=== PATIENT | male | born 1960 | race Hispanic/Latino ===

== ENCOUNTER 2019-02-02 15:08 | Emergency (ER) | payer OTHER, SELFPAY ==
[2019-02-02 15:19] VITALS: BP 162/86; PULSE 88; RESP 13; TEMP 37.1; O2SAT 99
--- NOTE | 2019-02-02 15:28 | ED_ITS ---
HPI - Extremity Injury (Lower) <Radha Espitia PA-C - Last Filed: 02/02/19 18:00> General Chief Complaint: Extremity Injury, Lower Stated Complaint: states gout attack Time Seen by Provider: 02/02/19 15:14 Source: patient Mode of arrival: Wheelchair Limitations: no limitations History of Present Illness HPI Narrative: This 58-year-old male who has a long history of recurrent gout comes in today due to gout exacerbation. He states that he has been on preventative medication in the past but not recently, tends to work more with diet to help that. Late yesterday, he developed a red, swollen painful right great toe, which is the most common spot for his gout attacks. He states this feels like gout. He states that colchicine has not been effective for him in the past, and that indomethacin tends to work best for him. He states he has taken that periodically without problems, but unable to be seen at the [facility] [place] today so came here. He denies any new injury to the foot, cuts, fever, other new complaints on systems review. States recent renal function normal on lab work Related Data Home Medications Medication Instructions Recorded Confirmed lisinopril 20 mg PO QDAY #0 03/10/16 Previous Rx's Medication Instructions Recorded benzonatate [Tessalon Perles] 1 - 2 cap PO Q8HP PRN #15 cap 03/10/16 indomethacin 50 mg PO TID #14 cap 02/02/19 Allergies Allergy/AdvReac Type Severity Reaction Status Date / Time ASA (ASPIRIN) Allergy Intermediate HIVES ON Uncoded 06/18/17 12:28 FACE WITH HIGH DOSES anacin brand Review of Systems <Radha Espitia PA-C - Last Filed: 02/02/19 18:00> Review of Systems ROS Unobtainable: All systems reviewed & are unremarkable except as noted in HPI and below Patient History <Radha Espitia PA-C - Last Filed: 02/02/19 18:00> Medical History (Updated 02/02/19 @ 16:12 by Radha Espitia PA-C) Allergies (Chronic) CAD (coronary artery disease) (Chronic) Gout attack (Chronic) HTN (hypertension) (Chronic) Hyperlipidemia (Chronic) Surgical History (Updated 02/02/19 @ 15:44 by Radha Espitia PA-C) Status post aorto-coronary artery bypass graft (Resolved) Social History (Updated 02/02/19 @ 15:45 by Radha Espitia PA-C) Smoking Status: Never smoker substance use type: does not use Substance Use Type: does not use Exam <Radha Espitia PA-C - Last Filed: 02/02/19 18:00> Narrative Exam Narrative: GENERAL APPEARANCE: Patient sitting comfortably, in no distress. LUNGS: Clear to auscultation bilaterally. HEART: Rate and rhythm regular without murmur, normal S1 and S2, no S3 or S4. DERMATOLOGIC: Right great toe erythematous and warm at the MTP joint, no warmth or tenderness elsewhere on the right or left foot MUSCULOSKELETAL: Exquisitely tender right 1st MTP joint, no tenderness or effusion elsewhere EXTREMITIES: No cyanosis, no edema, no calf tenderness Initial Vital Signs Initial Vital Signs: Vital Signs Temperature 98.8 F 02/02/19 15:19 Pulse Rate 88 02/02/19 15:19 Respiratory Rate 13 02/02/19 15:19 Blood Pressure 162/86 H 02/02/19 15:19 Pulse Oximetry 99 02/02/19 15:19 <Silvia Castro DO - Last Filed: 02/03/19 07:46> Initial Vital Signs Initial Vital Signs: Vital Signs Temperature 98.8 F 02/02/19 15:19 Pulse Rate 88 02/02/19 15:19 Respiratory Rate 13 02/02/19 15:19 Blood Pressure 162/86 H 02/02/19 15:19 Pulse Oximetry 99 02/02/19 15:19 Course <Radha Espitia PA-C - Last Filed: 02/02/19 18:00> Orders Ordered: Discontinued Medications Indomethacin (Indocin) 50 mg PO NOW ONE Stop: 02/02/19 15:37 Last Admin: 02/02/19 15:51 Dose: 50 mg Documented by: BOO Vital Signs Vital signs: Vital Signs - 8 hr 02/02/19 15:19 Temperature 98.8 F Pulse Rate 88 Respiratory Rate 13 Blood Pressure 162/86 H Pulse Oximetry 99 <Silvia Castro DO - Last Filed: 02/03/19 07:46> Orders Ordered: Discontinued Medications Indomethacin (Indocin) 50 mg PO NOW ONE Stop: 02/02/19 15:37 Last Admin: 02/02/19 15:51 Dose: 50 mg Documented by: BOO Vital Signs Vital signs: Vital Signs - 8 hr 02/02/19 15:19 Temperature 98.8 F Pulse Rate 88 Respiratory Rate 13 Blood Pressure 162/86 H Pulse Oximetry 99 Discharge Plan Departure Patient Disposition: Home Clinical Impression: Gout attack Qualifiers: Gout site: toe Gout etiology: idiopathic Laterality: right Qualified Code(s): M10.071 - Idiopathic gout, right ankle and foot Discharge Date/Time: 02/02/19 16:32 Instructions: DI for Gout Activity Restrictions/Additional Instructions: We will plan to treat your gout with indomethacin as usual since that tends to work best for you (sent to [facility] in [place]). Please take another dose at bedtime, make sure you take with food or milk to protect your stomach. Do not take for more than 3-5 days. Please follow-up with your PCP for recheck and to determine whether you need to go back on any preventative treatment for your gout, or whether they want you to have a prescription on hand for flare-ups. Return as we talked about if you have any acute changes, such as new fever or spreading joint pain, prior to your follow-up. Prescriptions: New indomethacin 50 mg capsule 50 mg PO TID Qty: 14 RF: 0 No Action lisinopril 20 MG tablet 20 mg PO QDAY Qty: 0 RF: 0 benzonatate [Tessalon Perles] 100 MG capsule 1 - 2 cap PO Q8HP PRNQty: 15 RF: 0 Referrals: [facility], [place] [Other]
[2019-02-02] MEDS: INDOMETHACIN 25 MG CAPSULE 50 MG PO (15:51)
== END 2019-02-02 16:32 | disposition home or self-care (01) ==
PROVIDERS: Emergency Provider Internal Medicine
DX: M10.071 Idiopathic gout, right ankle and foot (principal); I10 Essential (primary) hypertension; E78.5 Hyperlipidemia, unspecified
CPT/HCPCS: 99282; 99283

== ENCOUNTER → 2022-08-06 09:39 | Outpatient (CLI) | payer OTHER, SELFPAY ==
--- NOTE | 2022-08-06 18:22 | DI.NM.S_ITS ---
DATE OF SERVICE: 08/06/2022 PROCEDURE: Exercise perfusion study. INDICATIONS: Known CAD status post bypass surgery, diabetes mellitus, hypertension, hyperlipidemia. Exercise perfusion study was done for CAD risk stratification. RADIOPHARMACEUTICAL: Radioisotope, 27 mCi technetium-99m IV was injected at stress and 12.7 mCi technetium-99m IV was injected at rest. CARDIAC STRESS: The patient underwent exercise perfusion study under the supervision of an attending staff. The patient walked on Terry protocol for 6 minutes and 7 seconds, had shortness of breath and leg pain. No anginal symptoms. Baseline blood pressure 188/104 and peak blood pressure was 250/140. Hence, test was discontinued. At 6 minutes 42 seconds in recovery, blood pressure decreased to 178/106 mmHg. Baseline rhythm was sinus. During stress, significant baseline artifact. However, in late recovery, around 2 minutes 39 seconds into the recovery, patient had about 1 to 1.[address] depression in inferior leads and leads V5 to V6. No significant arrhythmias. RAW DATA: Adequate myocardial uptake. GATED STUDY: Resting LV ejection fraction 71% and stress LV ejection fraction 74%. Resting end-diastolic volume 70 mL. TID ratio 1.14, which is within normal limits. Lung/heart ratio 0.33, which is within normal limits. MYOCARDIAL PERFUSION SCAN: Stress supine, resting supine and stress prone images were compared to each other. Stress supine and resting supine images revealed small size, mildly decreased perfusion of basal lateral wall which got resolved during stress prone images. Stress prone images revealed normal myocardial perfusion. No convincing ischemia infarction. CONCLUSION: I would call this study a normal myocardial perfusion study, as stress prone images revealed normal myocardial perfusion and some tissue attenuation artifact, which got resolved during stress prone images. Poor exercise tolerance. Significantly hypertensive blood pressure response. Baseline blood pressure 188/104 and peak blood pressure went up to 250/140. At 6 minutes 42 seconds in recovery, blood pressure decreased to 178/106 mmHg. EKG changes in late recovery, as stated above. However, no significant ischemia or infarction on perfusion scan. Preserved left ventricular function. JAYESH positive 22%. The patient achieved 7 METs of workload. Midlevel who supervised the stress test advised patient to resume his blood pressure medications. Will recommend patient to see PCP urgently for further evaluation and management of blood pressure. Jersey Jauregui - /heriberto/ doc#: [id number]/job#: [id number] dd: 08/06/2022 16:23:00 dt: 08/06/2022 17:46:00 DICTATING MD/COPIES TO: Krystian Mason MD; Sarah Mclean COPIES MNE: GEORGE; ; Sarah Mclean
--- NOTE | 2022-08-06 18:42 | DI.NM.S_ITS ---
DATE OF SERVICE: 08/06/2022 ADDENDUM Please make that addendum in my previous note that at 6 minutes 42 seconds in recovery, blood pressure decreased to 178/106 mmHg. Jersey Jauregui - JOAQUINA/heriberto/ doc#: [id number]/job#: [id number] dd: 08/06/2022 16:26:00 dt: 08/06/2022 18:26:00 DICTATING /COPIES TO: Krystian Mason MD COPIES MNE: GEORGE;
== END ==
PROVIDERS: PCP Counselor Addiction (Substance Use Disorder); Referring Provider Counselor Addiction (Substance Use Disorder); Visit Provider Counselor Addiction (Substance Use Disorder)
DX: I25.810 Atherosclerosis of coronary artery bypass graft(s) without angina pectoris (principal); I10 Essential (primary) hypertension
CPT/HCPCS: 78452; 93017; A9502

== ENCOUNTER 2022-08-26 13:46 | Emergency (ER) | payer OTHER, SELFPAY ==
[2022-08-26 13:48] VITALS: BP 155/106; PULSE 74; TEMP 36.9; O2SAT 99; BMI 29.8
--- NOTE | 2022-08-26 13:58 | DI.RAD.S_ITS ---
PROCEDURE: XR KNEE RT 3V INDICATIONS: Pain TECHNIQUE: 3 views of the knee were acquired. COMPARISON: None. FINDINGS: Bones: No fractures or dislocations. No suspicious bony lesions. Tricompartmental arthritic change. Soft tissues: Moderate joint effusion. No suspicious soft tissue calcifications. IMPRESSION: No visualized acute fracture or dislocation. However, if clinical concern and/or pain persist, short interval imaging followup in 7-10 days is recommended, as occult injury cannot be definitively excluded. Dictated by: Winifred Goodwin M.D. on 08/26/2022 at 15:18 Approved by: Winifred Goodwin M.D. on 08/26/2022 at 15:19
[2022-08-26 16:16] VITALS: PULSE 75; RESP 16; O2SAT 99
[2022-08-26] MEDS: ACETAMINOPHEN 325 MG TABLET 975 MG PO (16:29)
[2022-08-26] MEDS: LIDOCAINE PATCH 1 EACH ADH..PATCH TOP (16:29)
[2022-08-26] MEDS: IBUPROFEN 400 MG TABLET 800 MG PO (16:29)
--- NOTE | 2022-08-26 16:47 | ED_ITS ---
HPI - Extremity Problem <Lorie Davis PA-C - Last Filed: 08/26/22 16:53> General Chief complaint: Extremity Problem,Nontraumatic Stated complaint: rt knee painful since friday night Time Seen by Provider: 08/26/22 16:11 Source: patient Mode of arrival: Ambulatory History of Present Illness HPI Narrative: 61-year-old male with past medical history CAD, hyperlipidemia, hypertension, status post aorto coronary artery bypass graft presents to the ED with 4 days of right knee pain. Patient states that he was squatting down with his knees flexed in the same position for a long time 4 days ago, following which the knee pain started. Patient denies any other trauma. Patient denies numbness, tingling, weakness. Patient states that it is just painful to bear weight and walk. Patient is walking with a cane. Related Data Home Medications Medication Instructions Recorded Confirmed lisinopril 20 mg tablet 20 mg PO QDAY ##0 03/10/16 Previous Rx's Medication Instructions Recorded benzonatate 100 mg capsule 1 - 2 cap PO Q8HP PRN #15 caps 03/10/16 (Tesjohn Quiroga) indomethacin 50 mg capsule 50 mg PO TID gout #14 caps 02/02/19 Allergies Allergy/AdvReac Type Severity Reaction Status Date / Time ASA (ASPIRIN) Allergy Intermediate HIVES ON Uncoded 08/26/22 13:48 FACE WITH HIGH DOSES anacin brand Review of Systems <Lorie Davis PA-C - Last Filed: 08/26/22 16:53> Review of Systems ROS Unobtainable: All systems reviewed & are unremarkable except as noted in HPI and below Constitutional Constitutional: Denies chills, Denies fatigue, Denies fever(s), Denies frequent falls, Denies lethargy and Denies weakness Eyes Eyes: Denies change in vision, Denies eye discharge, Denies irritation and Denies loss of vision ENT Ears, Nose, Mouth, and Throat: Denies change in voice, Denies dizziness, Denies neck pain, Denies sore throat and Denies throat swelling Cardiovascular Cardiovascular: Denies chest pain, Denies irregular heart rhythm, Denies lightheadedness, Denies palpitations, Denies dyspnea, Denies dyspnea on exertion and Denies orthopnea Respiratory Respiratory: Denies cough, Denies dyspnea, Denies dyspnea on exertion and Denies wheezing Gastrointestinal Gastrointestinal: Denies abdominal pain, Denies change in bowel habits, Denies diarrhea, Denies nausea and Denies vomiting Genitourinary Genitourinary: Denies hematuria, Denies flank pain, Denies urinary incontinence and Denies urinary urgency Musculoskeletal Musculoskeletal: Denies back pain, Denies muscle weakness, Denies neck pain, Denies numbness and Denies tingling Comments: Right knee pain Integumentary/Breasts Skin/Breast: Denies pruritus, Denies erythema, Denies rash and Denies wounds Neurologic Neurologic: Denies behavioral changes, Denies confusion, Denies dizziness, Denies frequent falls, Denies loss of vision, Denies numbness, Denies tingling and Denies weakness Psychiatric Psychiatric: Denies anxiety, Denies behavioral changes, Denies confusion, Denies depression, Denies homicidal ideation and Denies suicidal ideation Endocrine Endocrine: Denies fatigue, Denies flushing and Denies palpitations Hematologic/Lymphatic Hematologic/Lymphatic: Denies easy bruising Allergic/Immunologic Allergic/Immunologic: Denies urticaria, Denies throat swelling and Denies wheezing Patient History <Lorie Davis PA-C - Last Filed: 08/26/22 16:53> Medical History Allergies CAD (coronary artery disease) Gout attack HTN (hypertension) Hyperlipidemia Surgical History Status post aorto-coronary artery bypass graft Social History Smoking Status: Never smoker substance use type: does not use Smoking Status: Never smoker alcohol intake frequency: holidays/special occasions only Substance Use Type: does not use Exam <Lorie Davis PA-C - Last Filed: 08/26/22 16:53> Narrative Exam Narrative: Const General:?cooperative, healthy appearing and comfortable [facility] Head:?normal to inspection Ears:?hearing grossly normal bilaterally Nose:?external nose normal Face and sinus:?normal facial exam and sinuses nontender Mouth:?oral mucosae normal Throat:?posterior oropharynx normal Eyes General:?appearance normal, both eyes and all related structures Neck Neck:?normal visual inspection and no lymphadenopathy noted Resp Effort & Inspection:?normal respiratory effort Auscultation:?clear to auscultation bilaterally Cardio Rate:?regular rate Rhythm:?regular rhythm Musculoskeletal Right knee appears somewhat more swollen than the left knee. There is no tenderness to palpation. No erythema or deformities. Patient has full range of motion. Strength and sensation is intact. Patient is neurovascularly intact. Neuro General:?patient alert, patient awake and patient oriented x3 Initial Vital Signs Initial Vital Signs: Vital Signs Temperature 98.4 F 08/26/22 13:48 Pulse Rate 74 08/26/22 13:48 Blood Pressure 155/106 H 08/26/22 13:48 Pulse Oximetry 99 08/26/22 13:48 Oxygen Delivery Method Room Air 08/26/22 13:48 <Saji Galvez MD - Last Filed: 08/27/22 07:11> Initial Vital Signs Initial Vital Signs: Vital Signs Temperature 98.4 F 08/26/22 13:48 Pulse Rate 74 08/26/22 13:48 Blood Pressure 155/106 H 08/26/22 13:48 Pulse Oximetry 99 08/26/22 13:48 Oxygen Delivery Method Room Air 08/26/22 13:48 Course <Lorie Davis PA-C - Last Filed: 08/26/22 16:53> Orders Ordered: Discontinued Medications Acetaminophen (Acetaminophen 325 Mg Tablet) 975 mg PO NOW ONE Stop: 08/26/22 16:22 Last Admin: 08/26/22 16:29 Dose: 975 mg Documented By: MARLENE Ibuprofen (Ibuprofen 400 Mg Tablet) 800 mg PO NOW ONE Stop: 08/26/22 16:22 Last Admin: 08/26/22 16:29 Dose: 800 mg Documented By: MARLENE Lidocaine (Lidocaine Patch 1 Each Adh..Patch) 1 each TOP NOW ONE Stop: 08/26/22 16:22 Last Admin: 08/26/22 16:29 Dose: 1 each Documented By: MARLENE Vital Signs Vital signs: Vital Signs - 8 hr 08/26/22 13:48 08/26/22 16:16 Temperature 98.4 F Pulse Rate 74 75 Respiratory Rate 16 Blood Pressure 155/106 H Pulse Oximetry 99 99 Oxygen Delivery Method Room Air Room Air <Saji Galvez MD - Last Filed: 08/27/22 07:11> Orders Ordered: Discontinued Medications Acetaminophen (Acetaminophen 325 Mg Tablet) 975 mg PO NOW ONE Stop: 08/26/22 16:22 Last Admin: 08/26/22 16:29 Dose: 975 mg Documented By: MARLENE Ibuprofen (Ibuprofen 400 Mg Tablet) 800 mg PO NOW ONE Stop: 08/26/22 16:22 Last Admin: 08/26/22 16:29 Dose: 800 mg Documented By: MARLENE Lidocaine (Lidocaine Patch 1 Each Adh..Patch) 1 each TOP NOW ONE Stop: 08/26/22 16:22 Last Admin: 08/26/22 16:29 Dose: 1 each Documented By: MARLENE Vital Signs Vital signs: Vital Signs - 8 hr 08/26/22 13:48 08/26/22 16:16 Temperature 98.4 F Pulse Rate 74 75 Respiratory Rate 16 Blood Pressure 155/106 H Pulse Oximetry 99 99 Oxygen Delivery Method Room Air Room Air MDM - Extremity (Nontraumatic) <Lorie Davis PA-C - Last Filed: 08/26/22 16:53> MDM Narrative Medical decision making narrative: 61-year-old male with past medical history CAD, hyperlipidemia, hypertension, status post aorto coronary artery bypass graft presents to the ED with 4 days of right knee pain. Concern for fracture/dislocation versus musculoskeletal sprain/strain. X-ray was obtained with no acute findings. Patient's symptoms l ikely due to a musculoskeletal sprain/strain. Recommend supportive measures with ibuprofen, Tylenol, lidocaine patches, heat packs. Also recommend rest and keeping leg elevated above heart level. Recommend follow-up with PCP as soon as possible for further evaluation. ED return precautions were discussed with patient. Patient verbalized understanding. Discharge Plan Departure Patient Disposition: Home Clinical Impression: Knee pain Instructions: DI for Knee Pain Activity Restrictions/Additional Instructions: You were evaluated in the ED for right-sided knee pain. Your x-ray did not show any fractures or dislocations. Your symptoms are likely due to a musculoskeletal sprain/strain. You may take ibuprofen, Tylenol for the pain, apply lidocaine patches, heat packs. Your blood pressure was elevated today in the ED, some of which may be due to the pain. However, please keep a blood pressure log at home, follow-up with your PCP for further evaluation. Please follow-up with your PCP as soon as possible for further evaluation and PT referral. Prescriptions: No Action lisinopril 20 MG tablet 20 mg PO QDAY Qty: 0 benzonatate [Tessalon Perles] 100 MG capsule 1 - 2 cap PO Q8HP PRNQty: 15 0RF indomethacin 50 mg capsule 50 mg PO TID Qty: 14 0RF Rx Instructions: administer with food or milk Referrals: Miscellaneous,Doctor, [Primary Care Provider] - Stand Alone Forms: Patient Portal/API <Saji Galvez MD - Last Filed: 08/27/22 07:11> Cosign ED Attending Cosignature Attestation: I was immediately available in the department for consultation. ?This documentation has been reviewed and I agree with assessment and plan. Supervised by Saji Galvez MD
[2022-08-26 17:18] VITALS: BP 179/118
== END 2022-08-26 17:19 | disposition home or self-care (01) ==
PROVIDERS: Emergency Provider Student in an Organized Health Care Education/Training Program
DX: M25.561 Pain in right knee (principal)
CPT/HCPCS: 73562; 99283

== ENCOUNTER → 2022-12-18 11:58 | Outpatient (CLI) | payer OTHER, SELFPAY ==
--- NOTE | 2022-12-18 11:59 | DI.RAD.S_ITS ---
PROCEDURE: XR KUB INDICATIONS: Kidney Stones TECHNIQUE: One view of the abdomen acquired. COMPARISON: None. FINDINGS: Bowel: Bowel gas pattern is normal. Soft tissues: Approximately 1.2 cm calculus projects over the left renal shadow. Visualized solid organ contours appear normal in size. Bones: Degenerative changes noted in the lower lumbar spine IMPRESSION: Probable left renal calculus Approved by: Alvin Faria M.D. on 12/18/2022 at 16:47
== END ==
PROVIDERS: Referring Provider Specialist; Visit Provider Specialist
DX: Z87.442 Personal history of urinary calculi (principal); N20.0 Calculus of kidney
CPT/HCPCS: 74018; 81002; 99215

== ENCOUNTER 2023-01-07 13:04 | Emergency (ER) | payer OTHER, SELFPAY ==
[2023-01-07] VITALS (16 sets, daily range): BP systolic 172–220; BP diastolic 94–127; PULSE 66–73; RESP 18; TEMP 36.4; O2SAT 98–100; BMI 28.4
--- NOTE | 2023-01-07 13:57 | DI.US.S_ITS ---
PROCEDURE: US RENAL COMPLETE INDICATIONS: ELEVATED CREATININE TECHNIQUE: Real-time scanning was performed of the kidneys and bladder, with image documentation. COMPARISON: None. FINDINGS: Kidneys: Kidneys are normal in size. Right kidney measures 10.5 cm long; left kidney measures 10.3 cm long. Right renal cortical thickness is 1.8 cm; left renal cortical thickness is 1.5 cm. Renal cortical echotexture is normal. Nonobstructing calculus within the superior pole of the left kidney measuring 1.3 cm. No hydronephrosis. No suspicious solid mass lesions. Bladder: Pre-void bladder volume is 69 mL. Post-void residual is 0 mL. Pre-void images demonstrate no intraluminal masses or stones. Bilateral ureteral jets are not seen. (Of note, ureteral jets may not be detectable in up to 25% of cases due to insufficient differences in specific gravity between ureteral and bladder urine). Miscellaneous: No free pelvic fluid. IMPRESSION: Nonobstructing stone within the upper pole of the left kidney measuring 1.3 cm. No hydronephrosis is seen within either kidney. Dictated by: Sherif Cornejo M.D. on 01/07/2023 at 14:49 Approved by: Sherif Cornejo M.D. on 01/07/2023 at 14:51
[2023-01-07 14:44] LABS: Bacteria Urine None Seen; Culture Indicated Urine Cult Not Indicated; RBC Urine 10-30/HPF (0-5/HPF); Squamous Epithelial Cell Urine None Seen (0-5/HPF); WBC Urine None Seen (0-5/HPF)
[2023-01-07 15:14] LABS: Add Manual Diff / Slide Review NO; Basophils Absolute Auto 100 /uL (0-100); Eosinophils Absolute Auto 200 /uL (0-450); Eosinophils Percent Auto 2.6 % (2-4); Hematocrit 38.5 % (41-53); Hemoglobin 12.6 g/dL (13.5-17.5); Lymphocytes Absolute Auto 1600 /uL (1100-4500); Lymphocytes Percent Auto 26.9 % (25-40); Mean Corpuscular HGB Conc 32.8 % (30-36); Mean Corpuscular Volume 91.2 fL (80-100); Monocytes Absolute Auto 500 /uL (0-900); Monocytes Percent Auto 8.4 % (3-14); Neutrophils Absolute Auto 3700 /uL (1500-7000); Neutrophils Percent Auto 61.1 % (50-75); Platelet Count 301 X10^3/uL (150-400); Red Blood Cell Count 4.22 X10^6/uL (4.5-5.9); Red Cell Distribution Width 14.7 % (11.6-14.8)
[2023-01-07 15:31] LABS: Alanine Aminotransferase 24 IU/L (<50); Albumin 3.4 g/dL (3.5-5.0); Alkaline Phosphatase 79 U/L (38-126); Aspartate Aminotransferase 22 IU/L (17-59); BUN Creatinine Ratio 14.1 (6-22); Bilirubin Total 0.1 mg/dL (0.2-1.3); Blood Urea Nitrogen 36 mg/dL (9-20); Calcium 8.7 mg/dL (8.4-10.2); Carbon Dioxide 22 mmol/L (22-32); Chloride 108 mmol/L (98-107); Estimated Glomerular Filt Rate 27 mL/min (>60); Globulin 3.4 g/dL (1.7-4.1); Glucose 146 mg/dL (80-110); HEMOLYSIS < 15 (0-50); Potassium 3.9 mmol/L (3.4-5.1); Sodium 138 mmol/L (137-145); Total Protein 6.8 g/dL (6.3-8.2)
--- NOTE | 2023-01-07 15:38 | DI.CT.S_ITS ---
PROCEDURE: CT ABDOMEN PELVIS WO CON INDICATIONS: JAYSHREE TECHNIQUE: Axial sections were acquired from the lung bases to the pubic symphysis. Coronal and sagittal reformats were performed. For radiation dose reduction, the following was used: automated exposure control, adjustment of mA and/or kV according to patient size. COMPARISON: None. FINDINGS: Image quality: Excellent. Lung bases: Unremarkable. Heart: No significant findings. URINARY: Right Kidney: No stones or hydronephrosis. Right Ureter: No hydroureter. Left Kidney: 8 mm interpolar calculus (HU 500). No hydronephrosis. Left Ureter: No hydroureter. Bladder: Normal wall thickness. No stones. ABDOMEN: Liver: Unremarkable. Gallbladder: Unremarkable. Biliary ducts: Unremarkable. Pancreas: Unremarkable. Spleen: Unremarkable. Adrenal Glands: Unremarkable. Stomach and Bowel: Stomach, small bowel loops, and colon are unremarkable. Peritoneum: No abnormal intraperitoneal fluid. No free air. Ventral Wall: No hernia. Abdominal Nodes: No enlarged retroperitoneal or mesenteric lymph nodes. Vessels: Aorta and inferior vena cava are normal in size. Aorto bi iliac atherosclerotic calcifications. PELVIS: Pelvic Organs: Unremarkable. Pelvic Nodes: Unremarkable. Miscellaneous: No inguinal hernias are seen. Bones: No acute or suspicious osseous abnormality. Bilateral L5 pars interarticularis defects. Mild degenerative change of the spine. IMPRESSION: Nonobstructing 8 mm left interpolar region calculus. No hydronephrosis. Approved by: Estee Stevenson M.D. on 01/07/2023 at 16:20
--- NOTE | 2023-01-07 16:43 | ED_ITS ---
HPI - Male Genitourinary <Lorie Davis PA-C - Last Filed: 01/07/23 19:16> General Chief complaint: Urogenital-Male Stated complaint: sent by DR/something going on with kidney needs US Time Seen by Provider: 01/07/23 14:40 Source: patient Mode of arrival: Ambulatory History of Present Illness HPI Narrative: 62-year-old male with past medical history diabetes, hypercholesterolemia, hypertension, nephrolithiasis, status post aorto coronary artery bypass graft, CAD presents to the ED for further evaluation of abnormal labs. Patient was seen by his PCP at the [facility] last week, blood work was obtained which showed an elevated creatinine of 2.5. Patient's doctor had him stop the metformin until he could get further evaluation and directed him to the ED. patient states that he is not experiencing any symptoms. Patient has not had any chest pain, shortness of breath, nausea, vomiting, abdominal pain, flank pain, dysuria, lightheadedness, dizziness, syncope. Patient states he has a history of nephrolithiasis, was diagnosed with a stone in the left kidney, however it was nonobstructing. Patient has been seen by urologist Dr. Lam who is in the process of working him up for hematuria. Patient states that the last time he had blood work done prior to this was about 6 months ago. Patient said that his doctor wanted him to get a renal ultrasound for further evaluation. Related Data Home Medications Medication Instructions Recorded Confirmed lisinopril 20 mg tablet 20 mg PO QDAY ##0 03/10/16 Previous Rx's Medication Instructions Recorded indomethacin 50 mg capsule 50 mg PO TID gout #14 caps 02/02/19 Allergies Allergy/AdvReac Type Severity Reaction Status Date / Time aspirin Allergy Severe Hives Verified 01/07/23 17:11 Review of Systems <Lorie Davis PA-C - Last Filed: 01/07/23 19:16> Constitutional Constitutional: Denies chills, Denies fatigue, Denies fever(s), Denies frequent falls, Denies lethargy and Denies weakness Eyes Eyes: Denies change in vision, Denies eye discharge, Denies irritation and Denies loss of vision ENT Ears, Nose, Mouth, and Throat: Denies change in voice, Denies dizziness, Denies neck pain, Denies sore throat and Denies throat swelling Cardiovascular Cardiovascular: Denies chest pain, Denies irregular heart rhythm, Denies lightheadedness, Denies palpitations, Denies dyspnea, Denies dyspnea on exertion and Denies orthopnea Respiratory Respiratory: Denies cough, Denies dyspnea, Denies dyspnea on exertion and Denies wheezing Gastrointestinal Gastrointestinal: Denies abdominal pain, Denies change in bowel habits, Denies diarrhea, Denies nausea and Denies vomiting Musculoskeletal Musculoskeletal: Denies neck pain and Denies numbness Integumentary/Breasts Skin/Breast: Denies pruritus, Denies erythema, Denies rash and Denies wounds Neurologic Neurologic: Denies behavioral changes, Denies confusion, Denies dizziness, Denies frequent falls, Denies loss of vision, Denies numbness and Denies weakness Psychiatric Psychiatric: Denies anxiety, Denies behavioral changes, Denies confusion, Denies depression, Denies homicidal ideation and Denies suicidal ideation Endocrine Endocrine: Denies fatigue, Denies flushing and Denies palpitations Hematologic/Lymphatic Hematologic/Lymphatic: Denies easy bruising Allergic/Immunologic Allergic/Immunologic: Denies urticaria, Denies throat swelling and Denies wheezing Patient History <Lorie Davis PA-C - Last Filed: 01/07/23 19:16> Medical History History of nephrolithiasis Left nephrolithiasis Allergies CAD (coronary artery disease) Hyperlipidemia Gout attack HTN (hypertension) Surgical History Status post aorto-coronary artery bypass graft Social History Smoking Status: Never smoker substance use type: does not use Smoking Status: Never smoker alcohol intake frequency: holidays/special occasions only Substance Use Type: does not use Exam <Lorie Davis PA-C - Last Filed: 01/07/23 19:16> Narrative Exam Narrative: Const General:?cooperative, healthy appearing and comfortable [facility] Head:?normal to inspection Ears:?hearing grossly normal bilaterally Nose:?external nose normal Face and sinus:?normal facial exam and sinuses nontender Mouth:?oral mucosae normal Throat:?posterior oropharynx normal Eyes General:?appearance normal, both eyes and all related structures Neck Neck:?normal visual inspection and no lymphadenopathy noted Resp Effort & Inspection:?normal respiratory effort Auscultation:?clear to auscultation bilaterally Cardio Rate:?regular rate Rhythm:?regular rhythm GI Abdomen is soft, nondistended, nontender to palpation. There is no CVA tenderness. Neuro General:?patient alert, patient awake and patient oriented x3 Initial Vital Signs Initial Vital Signs: Vital Signs Temperature 97.5 F L 01/07/23 13:08 Pulse Rate 72 01/07/23 13:08 Respiratory Rate 18 01/07/23 13:08 Blood Pressure 178/111 H 01/07/23 13:08 Pulse Oximetry 100 01/07/23 13:08 Oxygen Delivery Method Room Air 01/07/23 13:08 <Silvia Castro DO - Last Filed: 01/08/23 00:32> Initial Vital Signs Initial Vital Signs: Vital Signs Temperature 97.5 F L 01/07/23 13:08 Pulse Rate 72 01/07/23 13:08 Respiratory Rate 18 01/07/23 13:08 Blood Pressure 178/111 H 01/07/23 13:08 Pulse Oximetry 100 01/07/23 13:08 Oxygen Delivery Method Room Air 01/07/23 13:08 Course <Lorie Davis PA-C - Last Filed: 01/07/23 19:16> Orders Ordered: ED Orders 01/07/23 15:38 CT abdomen pelvis wo con Stat Discontinued Medications Sodium Chloride (Normal Saline 0.9%) 1,000 mls @ 1,000 mls/hr IV BOLUS ONE Stop: 01/07/23 17:42 Last Infusion: 01/07/23 17:56 Dose: Infused Documented By: Admin: 01/07/23 17:00 Dose: 1,000 mls/hr Documented By: KAMILLE Losartan Potassium (Losartan 50 Mg Tablet) 100 mg PO NOW ONE Stop: 01/07/23 18:43 Last Admin: 01/07/23 18:51 Dose: 100 mg Documented By: KIRAN Vital Signs Vital signs: Vital Signs - 8 hr 01/07/23 17:00 01/07/23 17:30 01/07/23 17:51 Pulse Rate 67 73 Respiratory Rate Blood Pressure Pulse Oximetry 100 99 100 Oxygen Delivery Method 01/07/23 17:52 01/07/23 17:54 01/07/23 18:51 Pulse Rate 70 Respiratory Rate Blood Pressure 216/127 H 217/127 H 220/111 H Pulse Oximetry Oxygen Delivery Method 01/07/23 19:18 01/07/23 19:25 01/07/23 19:25 Pulse Rate 72 69 Respiratory Rate Blood Pressure 213/124 H Pulse Oximetry 100 100 Oxygen Delivery Method 01/07/23 19:32 Pulse Rate 67 Respiratory Rate 18 Blood Pressure 213/120 H Pulse Oximetry 100 Oxygen Delivery Method Room Air <Silvia Castro DO - Last Filed: 01/08/23 00:32> Orders Ordered: ED Orders 01/07/23 15:38 CT abdomen pelvis wo con Stat Discontinued Medications Sodium Chloride (Normal Saline 0.9%) 1,000 mls @ 1,000 mls/hr IV BOLUS ONE Stop: 01/07/23 17:42 Last Infusion: 01/07/23 17:56 Dose: Infused Documented By: Admin: 01/07/23 17:00 Dose: 1,000 mls/hr Documented By: DKJosefina Losartan Potassium (Losartan 50 Mg Tablet) 100 mg PO NOW ONE Stop: 01/07/23 18:43 Last Admin: 01/07/23 18:51 Dose: 100 mg Documented By: AMV Vital Signs Vital signs: Vital Signs - 8 hr 01/07/23 17:00 01/07/23 17:30 01/07/23 17:51 Pulse Rate 67 73 Respiratory Rate Blood Pressure Pulse Oximetry 100 99 100 Oxygen Delivery Method 01/07/23 17:52 01/07/23 17:54 01/07/23 18:51 Pulse Rate 70 Respiratory Rate Blood Pressure 216/127 H 217/127 H 220/111 H Pulse Oximetry Oxygen Delivery Method 01/07/23 19:18 01/07/23 19:25 01/07/23 19:25 Pulse Rate 72 69 Respiratory Rate Blood Pressure 213/124 H Pulse Oximetry 100 100 Oxygen Delivery Method 01/07/23 19:32 Pulse Rate 67 Respiratory Rate 18 Blood Pressure 213/120 H Pulse Oximetry 100 Oxygen Delivery Method Room Air MDM - Male Genitourinary <Lorie Davis PA-C - Last Filed: 01/07/23 19:16> Lab Data 01/07/23 15:00 01/07/23 15:00 Labs: Lab Results 01/07/23 01/07/23 Range/Units 14:34 15:00 WBC 6.0 (4.5-11.0) X10^3/uL RBC 4.22 L (4.5-5.9) X10^6/uL Hgb 12.6 L (13.5-17.5) g/dL Hct 38.5 L (41-53) % MCV 91.2 (80-100) fL MCH 30.0 (26-34) PG MCHC 32.8 (30-36) % RDW 14.7 (11.6-14.8) % Plt Count 301 (150-400) X10^3/uL Neut % (Auto) 61.1 (50-75) % Lymph % (Auto) 26.9 (25-40) % [place] % (Auto) 8.4 (3-14) % Eos % (Auto) 2.6 (2-4) % Baso % (Auto) 1.0 (0-2) % Neut # (Auto) 3700 (7248-1734) /uL Lymph # (Auto) 1600 (4955-6837) /uL [place] # (Auto) 500 (0-900) /uL Eos # (Auto) 200 (0-450) /uL Baso # (Auto) 100 (0-100) /uL Sodium 138 (137-145) mmol/L Potassium 3.9 (3.4-5.1) mmol/L Chloride 108 H (98-107) mmol/L Carbon Dioxide 22 (22-32) mmol/L BUN 36 H (9-20) mg/dL Creatinine 2.56 H (0.66-1.25) mg/dL Estimated GFR 27 L (>60) mL/min BUN/Creatinine Ratio 14.1 (6-22) Glucose 146 H (80-110) mg/dL Calcium 8.7 (8.4-10.2) mg/dL Total Bilirubin 0.1 L (0.2-1.3) mg/dL AST 22 (17-59) IU/L ALT 24 (<50) IU/L Alkaline Phosphatase 79 (38-126) U/L Total Protein 6.8 (6.3-8.2) g/dL Albumin 3.4 L (3.5-5.0) g/dL Globulin 3.4 (1.7-4.1) g/dL Albumin/Globulin Ratio 1.0 (1.0-2.8) Urine RBC 10-30/hpf H (0-5/HPF) Urine WBC None seen (0-5/HPF) Ur Squamous Epith Cells None seen (0-5/HPF) Urine Bacteria None seen (None) Ur Culture Indicated? Cult not indicated Urine Dip Bedside Urine Glucose 1000 mg/dl Bedside Urine Bilirubin - Negative Bedside Urine Ketone - Negative Urine Specific [place] 1.025 Bedside Urine Occult Blood +++ Bedside Urine pH 6 Bedside Urine Protein +++ 300 Bedside Urine Urobilinogen - Negative Bedside Urine Nitrite - Negative Bedside Urine Leukocytes - Negative Esterase MDM Narrative Medical decision making narrative: 62-year-old male with past medical history diabetes, hypercholesterolemia, hypertension, nephrolithiasis, status post aorto coronary artery bypass graft, CAD presents to the ED for further evaluation of abnormal labs. Concern for JAYSHREE versus CKD versus obstructive nephrolithiasis versus UTI versus other. Obtained labs, UA, renal ultrasound. UA negative for UTI, positive for hematuria. Renal ultrasound shows nonobstructing renal stone in the upper pole of the left kidney. No hydronephrosis. No acute findings. CT abdomen pelvis was without acute findings. Labs show elevated creatinine to 2.56, BUN elevated to 36, GFR reduced to 27. BUN/creatinine ratio 14.1 which is normal. All other labs within normal limits. It appears that patient has stage III [facility] Patient's GFR and creatinine most consistent with CKD. CT also shows small kidneys consistent with CKD. Discussed findings and plan with patient. Patient agrees to follow- up with his PCP. Patient's blood pressure was high at 220/111 at the time of discharge, patient given losartan 100 mg p.o. since he usually takes valsartan 160 b.i.d. Medical records reviewed: Yes <Silvia Castro, DO - Last Filed: 01/08/23 00:32> Lab Data Labs: Lab Results 01/07/23 01/07/23 Range/Units 14:34 15:00 WBC 6.0 (4.5-11.0) X10^3/uL RBC 4.22 L (4.5-5.9) X10^6/uL Hgb 12.6 L (13.5-17.5) g/dL Hct 38.5 L (41-53) % MCV 91.2 (80-100) fL MCH 30.0 (26-34) PG MCHC 32.8 (30-36) % RDW 14.7 (11.6-14.8) % Plt Count 301 (150-400) X10^3/uL Neut % (Auto) 61.1 (50-75) % Lymph % (Auto) 26.9 (25-40) % [place] % (Auto) 8.4 (3-14) % Eos % (Auto) 2.6 (2-4) % Baso % (Auto) 1.0 (0-2) % Neut # (Auto) 3700 (0958-2025) /uL Lymph # (Auto) 1600 (0636-7057) /uL [place] # (Auto) 500 (0-900) /uL Eos # (Auto) 200 (0-450) /uL Baso # (Auto) 100 (0-100) /uL Sodium 138 (137-145) mmol/L Potassium 3.9 (3.4-5.1) mmol/L Chloride 108 H (98-107) mmol/L Carbon Dioxide 22 (22-32) mmol/L BUN 36 H (9-20) mg/dL Creatinine 2.56 H (0.66-1.25) mg/dL Estimated GFR 27 L (>60) mL/min BUN/Creatinine Ratio 14.1 (6-22) Glucose 146 H (80-110) mg/dL Calcium 8.7 (8.4-10.2) mg/dL Total Bilirubin 0.1 L (0.2-1.3) mg/dL AST 22 (17-59) IU/L ALT 24 (<50) IU/L Alkaline Phosphatase 79 (38-126) U/L Total Protein 6.8 (6.3-8.2) g/dL Albumin 3.4 L (3.5-5.0) g/dL Globulin 3.4 (1.7-4.1) g/dL Albumin/Globulin Ratio 1.0 (1.0-2.8) Urine RBC 10-30/hpf H (0-5/HPF) Urine WBC None seen (0-5/HPF) Ur Squamous Epith Cells None seen (0-5/HPF) Urine Bacteria None seen (None) Ur Culture Indicated? Cult not indicated Urine Dip Bedside Urine Glucose 1000 mg/dl Bedside Urine Bilirubin - Negative Bedside Urine Ketone - Negative Urine Specific [place] 1.025 Bedside Urine Occult Blood +++ Bedside Urine pH 6 Bedside Urine Protein +++ 300 Bedside Urine Urobilinogen - Negative Bedside Urine Nitrite - Negative Bedside Urine Leukocytes - Negative Esterase Discharge Plan Departure Patient Disposition: Home Clinical Impression: CKD (chronic kidney disease), Creatinine elevation Instructions: Creatinine, Chronic Kidney Disease Activity Restrictions/Additional Instructions: You were evaluated in the ED today for an elevated creatinine level. We did rerun your labs and your creatinine was elevated at 2.56 with a reduced GFR of 27. Your records from the [facility] seem to indicate that you have chronic kidney disease which explains why your creatinine is elevated over time. Your renal ultrasound and CT abdomen pelvis were normal. Please follow-up with your PCP as soon as possible. Return to the ED if you have worsening symptoms. Prescriptions: No Action lisinopril 20 MG tablet 20 mg PO QDAY Qty: 0 indomethacin 50 mg capsule 50 mg PO TID Qty: 14 0RF Rx Instructions: administer with food or milk Referrals: Miscellaneous,Doctor, MD [Primary Care Provider] - Stand Alone Forms: Patient Portal/API ED Sign-out <Silvia Castro DO - Last Filed: 01/08/23 00:32> Cosign ED Attending Eleazar Attestation: I was immediately available in the department for consultation. Documentation has been reviewed.
[2023-01-07] MEDS: SODIUM CHLORIDE 0.9% 1,000 ML 1000 ML IV (17:00)
[2023-01-07] MEDS: LOSARTAN 50 MG TABLET 100 MG PO (18:51)
--- NOTE | 2023-01-07 18:52 | PC.NURSE ---
Pt's BP continues to be elevated. Gave PO meds and will continue to monitor
== END 2023-01-07 19:34 | disposition home or self-care (01) ==
PROVIDERS: Emergency Medicine; Emergency Provider Student in an Organized Health Care Education/Training Program
DX: N18.9 Chronic kidney disease, unspecified (principal); R79.89 Other specified abnormal findings of blood chemistry
CPT/HCPCS: 36415; 74176; 76770; 80053; 81003; 81015; 85025; 96360; 99284

== ENCOUNTER → 2023-01-13 15:26 | Outpatient (CLI) | payer OTHER, SELFPAY ==
[2023-01-13 17:25] LABS: Calcium 9.7 mg/dL (8.4-10.2); Uric Acid 4.6 mg/dL (3.5-8.5)
== END ==
PROVIDERS: Referring Provider Specialist; Visit Provider Specialist
DX: Z87.442 Personal history of urinary calculi (principal)
CPT/HCPCS: 36415; 82310; 84550

== ENCOUNTER 2023-02-16 12:51 | Emergency (ER) | payer OTHER, SELFPAY ==
[2023-02-16] VITALS (16 sets, daily range): BP systolic 104–161; BP diastolic 71–100; PULSE 71–80; RESP 12–20; TEMP 36.7; O2SAT 96–99; BMI 29.0
--- NOTE | 2023-02-16 13:31 | ED_ITS ---
HPI - Back Pain/Injury <Mimi Wilhelm PA-C - Last Filed: 02/16/23 19:58> General Chief Complaint: Back Pain/Injury Stated Complaint: low back pain/thinks kidney stones Time Seen by Provider: 02/16/23 13:17 Source: patient History of Present Illness HPI Narrative: 62-year-old male with a history of CKD III, nephrolithiasis, CAD, hyperlipidemia status post aorto coronary artery bypass graft, hypertension presents with concern for low back pain primarily on the right side that has been noticeable since . Pt states the pain alternates from left to right, he feels it both sides but more on the right in his low flank. Patient does endorse he saw his [facility] on Friday and is due to have a kidney biopsy as he has kidney failure and is stage III. He states that since he has been having pain mostly low down in his right flank it is not constant but it is quite severe when he performs certain movements and he feels a pressure sensation in his flank particularly if he is straightening his back or moving his body position or using his strength to get himself up off the floor. He states he normally sleeps on the floor on a pad as it is the most comfortable for him and the last few days he is had a lot of difficulty moving up off of the floor due to this pain. He did not do any heavy lifting or anything physical prior to this pain beginning that he can think of that could potentially have caused a muscle problem or back problem. Does not normally walk with a cane but has been walking with a cane the last few days because of the pain. He states right now the pain is fairly mild maybe a 2 or 3/10 but when it is bad such as with certain movements it goes up to a 10/10. He has been eating and drinking normally and has not had any other symptoms. He states he has had normal urinary output and has otherwise been in his usual state of health. He denies fevers, chills, nausea, vomiting, diarrhea, chest pain, abdominal pain, upper back pain or any other symptoms Related Data Home Medications Medication Instructions Recorded Confirmed lisinopril 20 mg tablet 20 mg PO QDAY ##0 03/10/16 02/05/23 Previous Rx's Medication Instructions Recorded potassium citrate 5 mEq (540 mg) 10 meq (2 x 5 mEq (540 mg)) PO BID 02/05/23 tablet,extended release #360 tabs Allergies Allergy/AdvReac Type Severity Reaction Status Date / Time aspirin Allergy Severe Hives Verified 02/05/23 15:54 Review of Systems <Mimi Wilhelm PA-C - Last Filed: 02/16/23 19:58> Review of Systems Narrative: See HPI Patient History <Mimi Wilhelm PA-C - Last Filed: 02/16/23 19:58> Medical History CKD (chronic kidney disease) History of nephrolithiasis Left nephrolithiasis Allergies CAD (coronary artery disease) Hyperlipidemia Gout attack HTN (hypertension) Surgical History Status post aorto-coronary artery bypass graft Social History Smoking Status: Never smoker substance use type: does not use Smoking Status: Never smoker alcohol intake frequency: holidays/special occasions only Substance Use Type: does not use Exam <Mimi Wilhelm PA-C - Last Filed: 02/16/23 19:58> Narrative Exam Narrative: GENERAL: [62] year old patient appears stated age. Well-developed patient, in mild distress, sitting in a wheelchair with cane adjacent. HEAD: Atraumatic. Normocephalic. EYES: Pupils equal round and reactive. Extraocular motions intact. No scleral icterus. No injection or drainage. ENT: Nose without bleeding, purulent drainage. Airway patent. NECK: Trachea midline. Non tender CARDIOVASCULAR: Regular rate and rhythm without murmurs, gallops, or rubs. RESPIRATORY: Clear to auscultation. Breath sounds equal bilaterally. No wheezes, rales, or rhonchi. GASTROINTESTINAL: Abdomen soft, non-tender, nondistended, there is mild left CVA tenderness and difficult to reproduce mild right low flank tenderness with percussion only but not with palpation. EXTREMITIES: Lower extremities are slightly weak, ROM is intact however increased pain with flexion-extension of the hip. Pedal pulses strong and equal bilaterally. No edema or joint tenderness. BACK: There is no midline spinous process tenderness or paraspinal muscle tenderness. Nontender without deformity or crepitance. See gastrointestinal. NEURO: AOx3. SKIN: No rash or erythema of visible areas Initial Vital Signs Initial Vital Signs: Vital Signs Temperature 98.1 F 02/16/23 13:05 Pulse Rate 80 02/16/23 13:05 Respiratory Rate 20 02/16/23 13:05 Blood Pressure 139/84 02/16/23 13:05 Pulse Oximetry 98 02/16/23 13:05 Oxygen Delivery Method Room Air 02/16/23 13:05 <Sylvia Gilbert, - Last Filed: 02/18/23 09:44> Initial Vital Signs Initial Vital Signs: Vital Signs Temperature 98.1 F 02/16/23 13:05 Pulse Rate 80 02/16/23 13:05 Respiratory Rate 20 02/16/23 13:05 Blood Pressure 139/84 02/16/23 13:05 Pulse Oximetry 98 02/16/23 13:05 Oxygen Delivery Method Room Air 02/16/23 13:05 Course <Mimi Wilhelm PA-C - Last Filed: 02/16/23 19:58> Course Course Narrative: Did discuss this patient's presentation and imaging and labs so far with Dr. Gilbert, given he does have significant pain on re-evaluation up to a 7 or 8/10 and is most comfortable lying flat moving him to the main emergency department so he can be supine on a bed they are also ordered a CT KUB for further evaluation as the x-ray was nonspecific and given his pain and the presence of hematuria we do need further imaging evaluation. Dr. Gilbert also recommended considering lidocaine IV at 1.5 milligrams/kilogram bolus for pain control as his kidney function is quite poor and he will be driving himself when/if he is discharged from the hospital this afternoon, so did prefer giving him strong pain meds such as Dilaudid. 1445 Discussed pain medication options with the patient and he is agreeable to the lidocaine confirms he does not have a way home other than driving himself. He does not feel Tylenol will be enough to help with his pain I also agree. [address] Gilbert again about this patient, lidocaine did little for his pain his pain seems to be worsening and it is now present even at rest. His CT KUB did show the stone on the left is possibly slightly larger than it was 6 weeks ago however there is no evidence of obstruction or hydronephrosis and I do not think this explains the patient's pain. Given his significant hypertension in his history at his last visit here in late December as well as persistent hypertension in his history in general as well as presence of blood in his urine, midline back pain at the level of the renal artery and note of 4.4 cm aorta on his CT KUB today which was noted to be ?normal in caliber? 6 weeks ago when he had a CT noncontrast Dr. Laguna agrees that pursuing further evaluation with CT angio chest abdomen pelvis is advisable for further evaluation for possible aortic dissection or renal artery dissection or both. Discussed this at length with the patient and he understands that there is some risk that his kidney function could worsen temporarily or in the [facility] due to having contrast dye but understands why we desire to do the evaluation/study and he is very agreeable with this he is looking for answers and is very uncomfortable with his pain. Do also give a fluid bolus of NS and Dilaudid for pain understand he may be in the ER longer even if his CT angio study returns negative as he will have to drive himself home and may be on a delay 2nd to strong pain meds but he is okay with this. 1610 Orders Ordered: Discontinued Medications Hydromorphone HCl (Hydromorphone 0.5 Mg Inj) 0.5 mg IV NOW ONE Stop: 02/16/23 16:11 Last Admin: 02/16/23 16:47 Dose: 0.5 mg Documented By: SAMANTHA Lidocaine HCl 6 ml/ Sodium (Chloride) 56 mls @ 336 mls/hr IV NOW ONE Stop: 02/16/23 14:54 Last Infusion: 02/16/23 15:37 Dose: Infused Documented By: Admin: 02/16/23 15:26 Dose: 336 mls/hr Documented By: PAOLA Sodium Chloride (Normal Saline 0.9%) 1,000 mls @ 1,000 mls/hr IV BOLUS ONE Stop: 02/16/23 17:09 Last Infusion: 02/16/23 17:38 Dose: Infused Documented By: Admin: 02/16/23 16:43 Dose: 1,000 mls/hr Documented By: JG Vital Signs Vital signs: Vital Signs - 8 hr 02/16/23 13:05 02/16/23 14:55 02/16/23 14:55 Temperature 98.1 F Pulse Rate 80 75 Respiratory Rate 20 Blood Pressure 139/84 135/84 Pulse Oximetry 98 98 Oxygen Delivery Method Room Air 02/16/23 15:00 02/16/23 15:00 02/16/23 15:15 Temperature Pulse Rate 74 77 Respiratory Rate Blood Pressure 125/78 Pulse Oximetry 99 97 Oxygen Delivery Method 02/16/23 15:15 02/16/23 15:30 02/16/23 15:30 Temperature Pulse Rate 74 Respiratory Rate Blood Pressure 111/78 122/76 Pulse Oximetry 97 Oxygen Delivery Method 02/16/23 15:45 02/16/23 15:45 02/16/23 16:00 Temperature Pulse Rate 75 75 Respiratory Rate Blood Pressure 104/71 Pulse Oximetry 96 98 Oxygen Delivery Method 02/16/23 16:00 02/16/23 16:15 02/16/23 16:15 Temperature Pulse Rate 77 Respiratory Rate Blood Pressure 120/74 133/80 Pulse Oximetry 97 Oxygen Delivery Method 02/16/23 16:30 02/16/23 17:00 02/16/23 17:30 Temperature Pulse Rate 76 76 74 Respiratory Rate 16 12 Blood Pressure Pulse Oximetry 99 96 97 Oxygen Delivery Method 02/16/23 18:00 02/16/23 18:30 02/16/23 18:39 Temperature Pulse Rate 74 72 Respiratory Rate 15 13 Blood Pressure 124/84 Pulse Oximetry 97 97 Oxygen Delivery Method 02/16/23 18:39 02/16/23 18:45 02/16/23 18:45 Temperature Pulse Rate 72 71 Respiratory Rate 16 19 Blood Pressure 161/100 H Pulse Oximetry 98 99 Oxygen Delivery Method 02/16/23 19:00 02/16/23 19:00 Temperature Pulse Rate 72 Respiratory Rate 15 Blood Pressure 156/97 H Pulse Oximetry 99 Oxygen Delivery Method <Sylvia Gilbert DO - Last Filed: 02/18/23 09:44> Orders Ordered: Discontinued Medications Hydromorphone HCl (Hydromorphone 0.5 Mg Inj) 0.5 mg IV NOW ONE Stop: 02/16/23 16:11 Last Admin: 02/16/23 16:47 Dose: 0.5 mg Documented By: JG Lidocaine HCl 6 ml/ Sodium (Chloride) 56 mls @ 336 mls/hr IV NOW ONE Stop: 02/16/23 14:54 Last Infusion: 02/16/23 15:37 Dose: Infused Documented By: Admin: 02/16/23 15:26 Dose: 336 mls/hr Documented By: PAOLA Sodium Chloride (Normal Saline 0.9%) 1,000 mls @ 1,000 mls/hr IV BOLUS ONE Stop: 02/16/23 17:09 Last Infusion: 02/16/23 17:38 Dose: Infused Documented By: Admin: 02/16/23 16:43 Dose: 1,000 mls/hr Documented By: SAMANTHA Vital Signs Vital signs: Vital Signs - 8 hr 02/16/23 13:05 02/16/23 14:55 02/16/23 14:55 Temperature 98.1 F Pulse Rate 80 75 Respiratory Rate 20 Blood Pressure 139/84 135/84 Pulse Oximetry 98 98 Oxygen Delivery Method Room Air 02/16/23 15:00 02/16/23 15:00 02/16/23 15:15 Temperature Pulse Rate 74 77 Respiratory Rate Blood Pressure 125/78 Pulse Oximetry 99 97 Oxygen Delivery Method 02/16/23 15:15 02/16/23 15:30 02/16/23 15:30 Temperature Pulse Rate 74 Respiratory Rate Blood Pressure 111/78 122/76 Pulse Oximetry 97 Oxygen Delivery Method 02/16/23 15:45 02/16/23 15:45 02/16/23 16:00 Temperature Pulse Rate 75 75 Respiratory Rate Blood Pressure 104/71 Pulse Oximetry 96 98 Oxygen Delivery Method 02/16/23 16:00 02/16/23 16:15 02/16/23 16:15 Temperature Pulse Rate 77 Respiratory Rate Blood Pressure 120/74 133/80 Pulse Oximetry 97 Oxygen Delivery Method 02/16/23 16:30 02/16/23 17:00 02/16/23 17:30 Temperature Pulse Rate 76 76 74 Respiratory Rate 16 12 Blood Pressure Pulse Oximetry 99 96 97 Oxygen Delivery Method 02/16/23 18:00 02/16/23 18:30 02/16/23 18:39 Temperature Pulse Rate 74 72 Respiratory Rate 15 13 Blood Pressure 124/84 Pulse Oximetry 97 97 Oxygen Delivery Method 02/16/23 18:39 02/16/23 18:45 02/16/23 18:45 Temperature Pulse Rate 72 71 Respiratory Rate 16 19 Blood Pressure 161/100 H Pulse Oximetry 98 99 Oxygen Delivery Method 02/16/23 19:00 02/16/23 19:00 Temperature Pulse Rate 72 Respiratory Rate 15 Blood Pressure 156/97 H Pulse Oximetry 99 Oxygen Delivery Method MDM - Back Pain/Injury <Mimi Wilhelm PA-C - Last Filed: 02/16/23 19:58> Differential Diagnosis Differential diagnosis: Likely lumbar radiculopathy, strain of lumbar region, renal colic, pyelonephritis and other (ureterolithiasis, UTI, renal artery dissection, renal colic) Medical Records Attestation: I reviewed the patient's medical records. Lab Data Attestation: I reviewed the patient's lab results. 02/16/23 13:33 02/16/23 13:33 Labs: Lab Results 02/16/23 02/16/23 02/16/23 Range/Units 13:33 13:50 16:35 WBC 11.1 H (4.5-11.0) X10^3/uL RBC 4.49 L (4.5-5.9) X10^6/uL Hgb 13.3 L (13.5-17.5) g/dL Hct 40.7 L (41-53) % MCV 90.6 (80-100) fL MCH 29.7 (26-34) PG MCHC 32.8 (30-36) % RDW 13.8 (11.6-14.8) % Plt Count 291 (150-400) X10^3/uL Neut % (Auto) 71.3 (50-75) % Lymph % (Auto) 17.7 L (25-40) % [place] % (Auto) 9.0 (3-14) % Eos % (Auto) 1.4 L (2-4) % Baso % (Auto) 0.6 (0-2) % Neut # (Auto) 7900 H (2543-6817) /uL Lymph # (Auto) 2000 (4143-3778) /uL [place] # (Auto) 1000 H (0-900) /uL Eos # (Auto) 200 (0-450) /uL Baso # (Auto) 100 (0-100) /uL PT 12.0 (9.4-12.5) SECONDS INR 1.0 (0.9-1.3) APTT 28 (25.1-36.5) SECONDS Sodium 135 L (137-145) mmol/L Potassium 4.5 (3.4-5.1) mmol/L Chloride 99 (98-107) mmol/L Carbon Dioxide 27 (22-32) mmol/L BUN 63 H (9-20) mg/dL Creatinine 2.96 H (0.66-1.25) mg/dL Estimated GFR 23 L (>60) mL/min BUN/Creatinine Ratio 21.3 (6-22) Glucose 137 H (80-110) mg/dL Calcium 9.8 (8.4-10.2) mg/dL Total Bilirubin 0.6 (0.2-1.3) mg/dL AST 22 (17-59) IU/L ALT 29 (<50) IU/L Alkaline Phosphatase 96 (38-126) U/L Total Protein 8.1 (6.3-8.2) g/dL Albumin 4.2 (3.5-5.0) g/dL Globulin 3.9 (1.7-4.1) g/dL Albumin/Globulin Ratio 1.1 (1.0-2.8) Urine Color Yellow Urine Appearance Clear Urine pH 5.5 (4.5-8.0) Ur Specific [place] 1.025 (1.000-1.035) Urine Protein 3+ H (Negative) Urine Glucose (UA) Negative (Negative) g/dL Urine Ketones Negative (NEGATIVE) Urine Occult Blood 3+ H (Negative) Urine Nitrate Negative (Negative) Urine Bilirubin Negative (NEGATIVE) Urine Urobilinogen 0.2 (0.2) E.U./dL Ur Leukocyte Esterase Negative (NEGATIVE) Urine RBC 5-10/hpf H (0-5/HPF) Urine WBC 1-5/hpf (0-5/HPF) Ur Squamous Epith Cells 1-5 /hpf (0-5/HPF) Urine Bacteria None seen (None) Urine Yeast 1-5/hpf H (None) Ur Culture Indicated? Cult not indicated Imaging Data Abdominal x-ray: My Impression: Agree with Radiology interpretation Radiologist's Impression: [address] [address] XRay Report Signed Patient: Jersey Jauregui MR#: [id number] : 1960 Acct:[id number] Age/Sex: 62 / M Date of Service: 02/16/23 Loc: ED Accession Number: [id number] Procedure: XR KUB Ordering Provider: Mimi Wilhelm P.A-C PROCEDURE: XR KUB INDICATIONS: R flank pain TECHNIQUE: One view of the abdomen acquired. COMPARISON: [facility], CR, XR KUB, 12/18/2022, 12:02. FINDINGS: Surgical changes and devices: None. Bowel: Bowel gas pattern is normal. Soft tissues: No suspicious abdominal calcifications. Visualized solid organ contours appear normal in size. Bones: No suspicious bony lesions. IMPRESSION: No acute abnormality. Dictated by: Saji Torres M.D. on 02/16/2023 at 12:56 Approved by: Saji Torres M.D. on 02/16/2023 at 12:58 CT scan - abdomen/pelvis: My Impression: Agree with Radiology interpretation Radiologist's Impression: [place] [id number] CT Scan Report Signed Patient: Jersey Jauregui MR#: [id number] : 1960 Acct:[id number] Age/Sex: 62 / M Date of Service: 02/16/23 Loc: ED Accession Number: [id number] Procedure: CT kidney ureter bladder (KUB) Ordering Provider: Mimi Wilhelm P.A-C PROCEDURE: CT KIDNEY URETER BLADDER (KUB) INDICATIONS: low flank pain TECHNIQUE: Axial sections were acquired from the lung bases to the pubic symphysis. Coronal and sagittal reformats were performed. For radiation dose reduction, the following was used: automated exposure control, adjustment of mA and/or kV according to patient size. COMPARISON: [facility], CT, KIDNEY/ URETER/BLADDER, 03/24/2014, 4:19. FINDINGS: Image quality: Excellent. Lung bases: Unremarkable. Heart: Coronary artery disease.. Ascending aorta measures 4.4 cm. URINARY: Right Kidney: No stones or hydronephrosis. Right Ureter: No hydroureter. Left Kidney: Within the left central kidney there is a 10 mm stone with average Hounsfield density of 433 Hounsfield units without associated hydronephrosis. Left Ureter: No hydroureter. Bladder: Normal wall thickness. No stones. ABDOMEN: Liver: No contour-deforming solid mass. Gallbladder: No radiopaque gallstones or wall thickening. Biliary ducts: No biliary dilation. Pancreas: No ductal dilation. Spleen: Size is within normal limits. Adrenal Glands: No adrenal nodules. Stomach and Bowel: Normal colonic caliber, without significant wall thickening. Peritoneum: No abnormal intraperitoneal fluid. No free air. Ventral Wall: No hernia. Abdominal Nodes: No enlarged retroperitoneal or mesenteric lymph nodes. Vessels: Aorta and inferior vena cava are normal in size. PELVIS: Pelvic Organs: Unremarkable. Pelvic Nodes: Unremarkable. Miscellaneous: No inguinal hernias are seen. Bones: Bilateral defect of L5. IMPRESSION: 1. Nonobstructive left renal stone measuring 1 cm. 2. No hydronephrosis 3. Ascending aortic ectasia measuring 4 cm. 4. Coronary artery disease. Dictated by: Saji Torres M.D. on 02/16/2023 at 13:56 Approved by: Saji Torres M.D. on 02/16/2023 at 14:04 CT angio chest/abd/pelvis: My Impression: Agree with Radiology interpretation Radiologist's Impression: [place] [id number] CT Scan Report Signed Patient: Jersey Jauregui MR#: [id number] : 1960 Acct:[id number] Age/Sex: 62 / M Date of Service: 02/16/23 Loc: ED Accession Number: [id number] Procedure: CT angio chest abdomen pelvis Ordering Provider: Mimi Wilhelm P.A-C PROCEDURE: CT ANGIO CHEST ABDOMEN PELVIS INDICATIONS: 4.4cm aorta, severe acute pn eval 4 renal/aort art dissect TECHNIQUE: Precontrast 5 mm thick sections acquired from the lung apices to the iliac crests. After the administration of intravenous contrast, 2.5 mm thick sections again acquired from the lung apices to the iliac crests. Maximum intensity projection (MIP) oblique sagittal and coronal reformats were then acquired. For radiation dose reduction, the following was used: automated exposure control. COMPARISON: [facility], CT, CT ABDOMEN PELVIS WO CON, 01/07/2023, 15:43. [facility], CT, CT KIDNEY URETER BLADDER (KUB), 02/16/2023, 14:43. FINDINGS: Image quality: Excellent. AORTA: No dissection. Ascending aortic ectasia measuring 4.3 cm. CHEST: Lungs and pleura: No acute airspace opacities. No pleural effusions or pneumothorax. Central and peripheral airways are patent and normal in caliber. Mediastinum: Heart size is normal. No pericardial effusion. No mediastinal or hilar adenopathy by size criteria. Central pulmonary arteries are normal in size. Esophagus is normal in caliber. No hiatal hernias. Bones and chest wall: No axillary adenopathy by size criteria. Thyroid gland is unremarkable . No suspicious bony lesions. No vertebral body compression fractures. ABDOMEN: Vasculature: Celiac trunk and mesenteric arteries are patent. Renal arteries are also patent. Solid organs: Liver is normal in size and enhancement. Gallbladder is normal. Biliary system is non dilated. Pancreas enhances normally. Spleen is normal in size and enhancement. No adrenal nodules. Both kidneys are normal in size and enhancement, without hydronephrosis. 1 cm left renal stone with average density of 335 Hounsfield units. Peritoneum and bowel: No free fluid or air. Bowel loops are normal in caliber and wall thickness. Nodes and vessels: No retroperitoneal or mesenteric adenopathy by size criteria. Inferior vena cava is normal in morphology. Miscellaneous: No ventral hernias. PELVIS: Genitourinary: Bladder wall thickness is normal. Miscellaneous: No inguinal hernias or adenopathy. No ventral hernias. Bones: No suspicious bony lesions. No vertebral body compression fractures. Bilateral pars 5 defects. IMPRESSION: 1. No aortic dissection. 2. Nonobstructive left renal stone. 3. Ascending aortic ectasia. Dictated by: Saji Torres M.D. on 02/16/2023 at 15:37 Approved by: Saji Torres M.D. on 02/16/2023 at 15:48 Treatment and disposition Shared decision making:: Shared decision-making was used to determining workup and evaluation today in the emergency department including specifically detailed discussion of risks and benefits of obtaining a CT scan with contrast given patient's poor kidney function. MDM Narrative Medical decision making narrative: 62-year-old male with history of CKD 3, hypertension known left nephrolithiasis seen by Nephrology and Urology presents with concern for low back pain and flank pain bilateral but more prominent on the right. Patient's pain began to be severe on morning although he has been dealing with some persistent chronic pains ever since his diagnosis of renal failure and kidney stone about 5 weeks ago in this ED. patient had no inciting incident likely to cause acute musculoskeletal injury, difficult to reproduce his pain on exam, initial labs were fairly unremarkable with exception of worsening kidney function compared to last studies in late December 2022. At that time creatinine was around 2.5 and today is around 2.9. Patient also was noted to have hematuria on urine dip. He has been afebrile and I have less suspicion for UTI. He has no CVA tenderness. Initially x-ray KUB was obtained which was unremarkable. Additional imaging obtained CT KUB after discussion with Dr. Gilbert. This is generally also unremarkable however there is note of a 4.4 cm aorta, enlarged. Patient's last study obtained 5 weeks ago of a noncontrast chest CT of the abdomen was noted to have a normal sized aorta at that time. Given this suspected increase in size and patient's pain which has been worsening acutely, presence of blood in his urine and history of hypertension which was quite significant at his last ER visit do have some concern for possible acute on chronic dissection of the aorta and possibly affecting the renal arteries. Discussed this with the attending physician Dr. Gilbert who agrees it would be prudent to obtain a CT scan with angio to evaluate for dissection, we also discussed patient's poor kidney function. Discussed At length with the patient the potential risk of temporary or potentially prolonged worsening of kidney function due to use of IV contrast, and also the risks and benefits of obtaining this study for dissection. Patient strongly prefers to get the CT scan done and understands the risks. He is bolused with a L of NS. He is also given a small dose 0.5 mg of Dilaudid and even 2 hours or more after this medication has good relief of his pain. His CT angio came back negative for dissection thankfully, however etiology of his pain is still unclear. Discussed this with the patient and he is agreeable with following up closely with his PCP, innovation analyst and urologist, we will continue with Tylenol as needed for pain. Return precautions provided, follow-up plan discussed, all questions answered. <Sylvia Gilbert, - Last Filed: 02/18/23 09:44> Lab Data Labs: Lab Results 02/16/23 02/16/23 02/16/23 Range/Units 13:33 13:50 16:35 WBC 11.1 H (4.5-11.0) X10^3/uL RBC 4.49 L (4.5-5.9) X10^6/uL Hgb 13.3 L (13.5-17.5) g/dL Hct 40.7 L (41-53) % MCV 90.6 (80-100) fL MCH 29.7 (26-34) PG MCHC 32.8 (30-36) % RDW 13.8 (11.6-14.8) % Plt Count 291 (150-400) X10^3/uL Neut % (Auto) 71.3 (50-75) % Lymph % (Auto) 17.7 L (25-40) % [place] % (Auto) 9.0 (3-14) % Eos % (Auto) 1.4 L (2-4) % Baso % (Auto) 0.6 (0-2) % Neut # (Auto) 7900 H (9132-4165) /uL Lymph # (Auto) 2000 (5695-5614) /uL [place] # (Auto) 1000 H (0-900) /uL Eos # (Auto) 200 (0-450) /uL Baso # (Auto) 100 (0-100) /uL PT 12.0 (9.4-12.5) SECONDS INR 1.0 (0.9-1.3) APTT 28 (25.1-36.5) SECONDS Sodium 135 L (137-145) mmol/L Potassium 4.5 (3.4-5.1) mmol/L Chloride 99 (98-107) mmol/L Carbon Dioxide 27 (22-32) mmol/L BUN 63 H (9-20) mg/dL Creatinine 2.96 H (0.66-1.25) mg/dL Estimated GFR 23 L (>60) mL/min BUN/Creatinine Ratio 21.3 (6-22) Glucose 137 H (80-110) mg/dL Calcium 9.8 (8.4-10.2) mg/dL Total Bilirubin 0.6 (0.2-1.3) mg/dL AST 22 (17-59) IU/L ALT 29 (<50) IU/L Alkaline Phosphatase 96 (38-126) U/L Total Protein 8.1 (6.3-8.2) g/dL Albumin 4.2 (3.5-5.0) g/dL Globulin 3.9 (1.7-4.1) g/dL Albumin/Globulin Ratio 1.1 (1.0-2.8) Urine Color Yellow Urine Appearance Clear Urine pH 5.5 (4.5-8.0) Ur Specific [place] 1.025 (1.000-1.035) Urine Protein 3+ H (Negative) Urine Glucose (UA) Negative (Negative) g/dL Urine Ketones Negative (NEGATIVE) Urine Occult Blood 3+ H (Negative) Urine Nitrate Negative (Negative) Urine Bilirubin Negative (NEGATIVE) Urine Urobilinogen 0.2 (0.2) E.U./dL Ur Leukocyte Esterase Negative (NEGATIVE) Urine RBC 5-10/hpf H (0-5/HPF) Urine WBC 1-5/hpf (0-5/HPF) Ur Squamous Epith Cells 1-5 /hpf (0-5/HPF) Urine Bacteria None seen (None) Urine Yeast 1-5/hpf H (None) Ur Culture Indicated? Cult not indicated Discharge Plan Departure Patient Disposition: Home Clinical Impression: Acute flank pain Low back pain Qualifiers: Chronicity: acute Back pain laterality: bilateral Sciatica presence: without sciatica Qualified Code(s): M54.50 - Low back pain, unspecified CKD (chronic kidney disease) Qualifiers: Chronic kidney disease stage: stage 3 (moderate) Chronic kidney disease stage 3 subtype: stage 3b (GFR 30-44) Qualified Code(s): N18.32 - Chronic kidney disease, stage 3b Activity Restrictions/Additional Instructions: *You have been diagnosed with [low back and flank pain] *What to do: *Please continue to take your regular medications as directed. [ ] New medication prescriptions sent to your pharmacy: [ ] [ ] New medication written as a paper prescription [X ] No new medications given *Please follow up with your primary care provider in 2-3 days, call for an appointment. Let them know you were seen in the Emergency Department and that we ask that you be seen in follow up. We will electronically transmit a record of today's note if your PCP is in our system. Your labs again today demonstrated poor kidney function slightly worse than the last time you were seen in this emergency department. It is going to be very important for you to follow up closely with your innovation analyst/kidney doctor as well as your urologist and primary care provider. Given the nature of your pain and findings on exam and with her history of high blood pressure as we discussed today prior to obtaining this study we did get a CT scan both of your kidneys and to evaluate for possible vascular problem of your aorta or renal arteries. Thankfully we did not find this on the imaging. This does mean I do not have a definite cause for your pain. As you did not do any recent heavy lifting or physical activity that would explain a muscle or bony injury this seems less likely as a cause, you do still have a kidney stone present in your left kidney however there is no evidence of infection or inflammation of this kidney and the presence of the stone does not necessarily explain your pain either. Your pain did improve today after some strong pain medicine of small dose that we gave you. I would encourage you to take Tylenol for pain moving forward, please work on hydrating and follow up closely with your primary care provider, kidney doctor and urologist. If you are not improving or he feel you are having any new or worsening symptoms please do not hesitate to seek re-evaluation. *If you do not have a primary care provider please contact the [facility] Resource line at [phone]. They will ask some questions about your medical history and help get you set up with a doctor in the community. *Return to Emergency Department if you should have any new, worsening or concerning symptoms, such as [fever greater than 101 F, shaking chills, worsening pain, persistent vomiting or other bothersome symptoms] Prescriptions: No Action lisinopril 20 MG tablet 20 mg PO QDAY Qty: 0 potassium citrate 5 mEq (540 mg) tablet extended release 10 meq PO BID Qty: 360 3RF Referrals: Miscellaneous,DoctorMD [Primary Care Provider] - Stand Alone Forms: Patient Portal/API ED Sign-out <Sylvia Gilbert DO - Last Filed: 02/18/23 09:44> Cosign ED Attending Cosryderature Attestation: I was immediately available in the department for consultation. Case was discussed with myself patient has had history of chronic kidney disease, kidney stones with low back pain primarily on the right side/flank. Initially suspected stone. Patient did receive lidocaine infusion which was not helpful for pain. Patient had workup with no signs of stone but there was concern about aortic ectasia CT KUB. Case was discussed with myself appropriate risks versus benefits despite low GFR to evaluate with CT angiography dissection versus ruptured aneurysm or other cause. CT angiography showed no aortic dissection, nonobstructing left renal stone setting aortic ectasia at 4.3 cm. Patient follow-up but does not require emergent surgical intervention. We will need to have continued blood pressure management and recheck of labs regarding patient's chronic kidney disease. Patient was hydrated with fluids afterwards.
[2023-02-16 13:49] LABS: Add Manual Diff / Slide Review NO; Basophils Absolute Auto 100 /uL (0-100); Basophils Percent Auto 0.6 % (0-2); Eosinophils Absolute Auto 200 /uL (0-450); Eosinophils Percent Auto 1.4 % (2-4); Hematocrit 40.7 % (41-53); Hemoglobin 13.3 g/dL (13.5-17.5); Lymphocytes Absolute Auto 2000 /uL (1100-4500); Lymphocytes Percent Auto 17.7 % (25-40); Mean Corpuscular HGB Conc 32.8 % (30-36); Mean Corpuscular Hemoglobin 29.7 PG (26-34); Mean Corpuscular Volume 90.6 fL (80-100); Monocytes Absolute Auto 1000 /uL (0-900); Neutrophils Absolute Auto 7900 /uL (1500-7000); Neutrophils Percent Auto 71.3 % (50-75); Platelet Count 291 X10^3/uL (150-400); Red Blood Cell Count 4.49 X10^6/uL (4.5-5.9); Red Cell Distribution Width 13.8 % (11.6-14.8); White Blood Cell Count 11.1 X10^3/uL (4.5-11.0)
[2023-02-16 14:02] LABS: Alanine Aminotransferase 29 IU/L (<50); Albumin 4.2 g/dL (3.5-5.0); Albumin Globulin Ratio 1.1 (1.0-2.8); Alkaline Phosphatase 96 U/L (38-126); Aspartate Aminotransferase 22 IU/L (17-59); BUN Creatinine Ratio 21.3 (6-22); Bilirubin Total 0.6 mg/dL (0.2-1.3); Blood Urea Nitrogen 63 mg/dL (9-20); Calcium 9.8 mg/dL (8.4-10.2); Carbon Dioxide 27 mmol/L (22-32); Chloride 99 mmol/L (98-107); Estimated Glomerular Filt Rate 23 mL/min (>60); Globulin 3.9 g/dL (1.7-4.1); Glucose 137 mg/dL (80-110); HEMOLYSIS < 15 (0-50); Potassium 4.5 mmol/L (3.4-5.1); Sodium 135 mmol/L (137-145); Total Protein 8.1 g/dL (6.3-8.2)
[2023-02-16 14:21] LABS: Appearance Urine UA CLEAR; Bilirubin Urine UA NEGATIVE (NEGATIVE); Color Urine UA YELLOW; Glucose Urine UA NEGATIVE (Negative); Ketones Urine UA NEGATIVE (NEGATIVE); Leukocyte Esterase Urine UA NEGATIVE (NEGATIVE); Nitrite Urine UA NEGATIVE (Negative); Occult Blood Urine UA 3+ (Negative); Protein Urine UA 3+ (Negative); Specific Gravity Urine UA 1.025 (1.000-1.035); Urobilinogen Urine UA 0.2 E.U./dL (0.2); pH Urine UA 5.5 (4.5-8.0)
[2023-02-16 14:34] LABS: Bacteria Urine None Seen; Culture Indicated Urine Cult Not Indicated; RBC Urine 5-10/HPF (0-5/HPF); Squamous Epithelial Cell Urine 1-5 /HPF (0-5/HPF); WBC Urine 1-5/HPF (0-5/HPF)
--- NOTE | 2023-02-16 14:36 | PC.NURSE ---
pt reporting increase in pain, visualized attempting to walk to recliner w/ cane; nurses stand by to assist. pt reports it only gets better if I lay down flat; provider aware.
--- NOTE | 2023-02-16 14:49 | DI.CT.S_ITS ---
PROCEDURE: CT KIDNEY URETER BLADDER (KUB) INDICATIONS: low flank pain TECHNIQUE: Axial sections were acquired from the lung bases to the pubic symphysis. Coronal and sagittal reformats were performed. For radiation dose reduction, the following was used: automated exposure control, adjustment of mA and/or kV according to patient size. COMPARISON: [facility], CT, KIDNEY/ URETER/BLADDER, 03/24/2014, 4:19. FINDINGS: Image quality: Excellent. Lung bases: Unremarkable. Heart: Coronary artery disease.. Ascending aorta measures 4.4 cm. URINARY: Right Kidney: No stones or hydronephrosis. Right Ureter: No hydroureter. Left Kidney: Within the left central kidney there is a 10 mm stone with average Hounsfield density of 433 Hounsfield units without associated hydronephrosis. Left Ureter: No hydroureter. Bladder: Normal wall thickness. No stones. ABDOMEN: Liver: No contour-deforming solid mass. Gallbladder: No radiopaque gallstones or wall thickening. Biliary ducts: No biliary dilation. Pancreas: No ductal dilation. Spleen: Size is within normal limits. Adrenal Glands: No adrenal nodules. Stomach and Bowel: Normal colonic caliber, without significant wall thickening. Peritoneum: No abnormal intraperitoneal fluid. No free air. Ventral Wall: No hernia. Abdominal Nodes: No enlarged retroperitoneal or mesenteric lymph nodes. Vessels: Aorta and inferior vena cava are normal in size. PELVIS: Pelvic Organs: Unremarkable. Pelvic Nodes: Unremarkable. Miscellaneous: No inguinal hernias are seen. Bones: Bilateral defect of L5. IMPRESSION: 1. Nonobstructive left renal stone measuring 1 cm. 2. No hydronephrosis 3. Ascending aortic ectasia measuring 4 cm. 4. Coronary artery disease. Dictated by: Saji Torres M.D. on 02/16/2023 at 13:56 Approved by: Saji Torres M.D. on 02/16/2023 at 14:04
[2023-02-16] MEDS: LIDOCAINE 2% (PF) 6 ML in SODIUM CHLORIDE 0.9% 50 ML 336 ML IV (15:26)
--- NOTE | 2023-02-16 16:10 | DI.CT.S_ITS ---
PROCEDURE: CT ANGIO CHEST ABDOMEN PELVIS INDICATIONS: 4.4cm aorta, severe acute pn eval 4 renal/aort art dissect TECHNIQUE: Precontrast 5 mm thick sections acquired from the lung apices to the iliac crests. After the administration of intravenous contrast, 2.5 mm thick sections again acquired from the lung apices to the iliac crests. Maximum intensity projection (MIP) oblique sagittal and coronal reformats were then acquired. For radiation dose reduction, the following was used: automated exposure control. COMPARISON: [facility], CT, CT ABDOMEN PELVIS WO CON, 01/07/2023, 15:43. [facility], CT, CT KIDNEY URETER BLADDER (KUB), 02/16/2023, 14:43. FINDINGS: Image quality: Excellent. AORTA: No dissection. Ascending aortic ectasia measuring 4.3 cm. CHEST: Lungs and pleura: No acute airspace opacities. No pleural effusions or pneumothorax. Central and peripheral airways are patent and normal in caliber. Mediastinum: Heart size is normal. No pericardial effusion. No mediastinal or hilar adenopathy by size criteria. Central pulmonary arteries are normal in size. Esophagus is normal in caliber. No hiatal hernias. Bones and chest wall: No axillary adenopathy by size criteria. Thyroid gland is unremarkable . No suspicious bony lesions. No vertebral body compression fractures. ABDOMEN: Vasculature: Celiac trunk and mesenteric arteries are patent. Renal arteries are also patent. Solid organs: Liver is normal in size and enhancement. Gallbladder is normal. Biliary system is non dilated. Pancreas enhances normally. Spleen is normal in size and enhancement. No adrenal nodules. Both kidneys are normal in size and enhancement, without hydronephrosis. 1 cm left renal stone with average density of 335 Hounsfield units. Peritoneum and bowel: No free fluid or air. Bowel loops are normal in caliber and wall thickness. Nodes and vessels: No retroperitoneal or mesenteric adenopathy by size criteria. Inferior vena cava is normal in morphology. Miscellaneous: No ventral hernias. PELVIS: Genitourinary: Bladder wall thickness is normal. Miscellaneous: No inguinal hernias or adenopathy. No ventral hernias. Bones: No suspicious bony lesions. No vertebral body compression fractures. Bilateral pars 5 defects. IMPRESSION: 1. No aortic dissection. 2. Nonobstructive left renal stone. 3. Ascending aortic ectasia. Dictated by: Saji Torres M.D. on 02/16/2023 at 15:37 Approved by: Saji Torres M.D. on 02/16/2023 at 15:48
[2023-02-16] MEDS: SODIUM CHLORIDE 0.9% 1,000 ML 1000 ML IV (16:43)
[2023-02-16] MEDS: HYDROMORPHONE 0.5 MG INJ IV (16:47)
[2023-02-16 16:56] LABS: PTT Partial Thromboplastin Tim 28 SECONDS (25.1-36.5)
== END 2023-02-16 19:22 | disposition home or self-care (01) ==
PROVIDERS: Emergency Provider Student in an Organized Health Care Education/Training Program
DX: M54.50 Low back pain, unspecified (principal); N18.32 Chronic kidney disease, stage 3b
CPT/HCPCS: 36415; 71275; 74018; 74174; 74176; 80053; 81001; 85025; 85610; 85730; 96374; 96375; 99284; J1170

== ENCOUNTER 2023-10-01 08:04 | Emergency (ER) | payer OTHER, SELFPAY ==
[2023-10-01] VITALS (12 sets, daily range): BP systolic 166–214; BP diastolic 104–136; PULSE 79–87; RESP 11–25; TEMP 36.7; O2SAT 94–99; BMI 26.8
--- NOTE | 2023-10-01 08:19 | EKG_ITS ---
[address] [address] Test Date: 2023-10-01 Pat Name: Jersey Jauregui Department: Room: Gender: Male Processing Engineer: ALYSSA : 1960 Requested By: Order Number: [id number] Reading MD: Neptali Saxena Measurements Intervals [place] Rate: 81 P: 11 AR: 140 QRS: 12 QRSD: 80 T: 40 QT: 354 QTc: 411 Interpretive Statements Normal sinus rhythm Possible Inferior infarct , age undetermined Electronically Signed On 10-01-2023 16:50:42 PDT by Neptali Saxena
--- NOTE | 2023-10-01 09:02 | DI.CT.S_ITS ---
PROCEDURE: CT HEAD/BRAIN WO CON INDICATIONS: HEADACHE, L EYE PROPTOSIS TECHNIQUE: Noncontrast 4.5 mm thick angled axial sections acquired from the foramen magnum to the vertex, with coronal and sagittal reformats. For radiation dose reduction, the following was used: automated exposure control, adjustment of mA and/or kV according to patient size. COMPARISON: None. FINDINGS: Image quality: Diagnostic. CSF spaces: Basal cisterns are patent. No extra-axial fluid collections. The ventricles are symmetric in size and shape. Brain: No intracranial bleeds or masses. There is cerebral volume loss for age, with resultant ventricular and sulcal prominence. There are periventricular and deep white matter chronic small vessel ischemic changes. There is intracranial internal carotid artery atherosclerosis. Skull and face: Calvarium and visualized facial bones appear intact, without suspicious lesions. Sinuses: Visualized sinuses demonstrate mucosal thickening and fluid levels predominantly within the maxillary sinuses bilaterally. IMPRESSION: 1. No acute intracranial process. 2. Mild atrophy and chronic microvascular ischemic changes. Dictated by: Winifred Goodwin M.D. on 10/01/2023 at 9:26 Approved by: Winifred Goodwin M.D. on 10/01/2023 at 9:28
--- NOTE | 2023-10-01 09:02 | DI.RAD.S_ITS ---
PROCEDURE: XR CHEST 1V INDICATIONS: DYSPNEA, EDEMA TECHNIQUE: One view of the chest was acquired. COMPARISON: [facility], , CHEST 2 VIEW, 05/06/2014, 11:51. FINDINGS: Surgical changes and devices: CABG Lungs and pleura: Lungs are clear. No pleural effusions or pneumothorax. Mediastinum: Mediastinal contours appear normal. Heart size is normal. Bones and chest wall: No suspicious bony lesions. Overlying soft tissues appear unremarkable. IMPRESSION: No acute cardiopulmonary abnormality is seen. Dictated by: Davin Helton M.D. on 10/01/2023 at 9:36 Approved by: Davin Helton M.D. on 10/01/2023 at 9:36
--- NOTE | 2023-10-01 09:11 | ED_ITS ---
HPI - General Adult General Chief complaint: Hypertension Stated complaint: headache, runny nose, leg problem Time Seen by Provider: 10/01/23 08:10 Source: patient Mode of arrival: Ambulatory History of Present Illness HPI narrative: 62-year-old male with history of chronic kidney disease, [id number] diabetes, congestive heart failure presents by private vehicle from home for about 1.5 weeks of headache, runny nose, 2 weeks of bilateral lower extremity swelling. Reports that he has been taking all of his prescribed medications as instructed, including torsemide. For diabetes patient states he was on metformin, but taken off of it due to his kidney function. [facility]. Related Data Home Medications Medication Instructions Recorded Confirmed lisinopril 20 mg tablet 20 mg PO QDAY ##0 03/10/16 02/05/23 allopurinol 300 mg tablet 300 mg PO DAILY 10/01/23 10/01/23 aspirin 81 mg tablet 81 mg PO DAILY 10/01/23 10/01/23 budesonide 4 mg capsule,delayed 16 mg PO DAILY 10/01/23 10/01/23 release (Tarpeyo) carvedilol 25 tab PO 1-2XD 10/01/23 10/01/23 cetirizine 10 caplet PO DAILY 10/01/23 10/01/23 ezetimibe 10 mg tablet 10 mg PO DAILY 10/01/23 10/01/23 isosorbide mononitrate 60 tab PO 1XD 10/01/23 10/01/23 omeprazole 40 tab PO DAILY 10/01/23 10/01/23 potassium citrate 5 mEq (540 mg) 10 meq PO BID 10/01/23 10/01/23 tablet,extended release torsemide 20 mg tablet 20 mg PO DAILY 10/01/23 10/01/23 valsartan 160 tab PO DAILY 10/01/23 10/01/23 Previous Rx's Medication Instructions Recorded amoxicillin 875 mg-potassium 1 tab PO Q12H #14 tabs 10/01/23 clavulanate 125 mg tablet glipizide 2.5 mg tablet 2.5 mg PO DAILY #30 tabs 10/01/23 Allergies Allergy/AdvReac Type Severity Reaction Status Date / Time aspirin Allergy Severe Hives Verified 10/01/23 18:55 Patient History Medical History CKD (chronic kidney disease) History of nephrolithiasis Left nephrolithiasis Allergies CAD (coronary artery disease) Hyperlipidemia Gout attack HTN (hypertension) Surgical History Status post aorto-coronary artery bypass graft Social History Smoking Status: Never smoker substance use type: does not use Smoking Status: Never smoker alcohol intake frequency: holidays/special occasions only Substance Use Type: does not use Exam Initial Vital Signs Initial Vital Signs: Vital Signs Temperature 98.1 F 10/01/23 08:18 Pulse Rate 87 10/01/23 08:18 Respiratory Rate 16 10/01/23 08:18 Blood Pressure 214/113 H 10/01/23 08:18 Pulse Oximetry 94 10/01/23 08:18 Oxygen Delivery Method Room Air 10/01/23 08:18 Const: Awake, alert, appears chronically unwell, much older than stated age HEENT: Maxillary sinus tenderness bilaterally, minimal periorbital swelling left cheek/I Cardiac: regular rate, regular rhythm RESP: unlabored, clear bilaterally, no wheezing MSK: Atraumatic, 3+ pitting edema to thighs bilaterally Skin: Warm, Dry, intact, no rashes Neuro: AO x3, CN II-XII grossly intact, moves all extremities Course Orders Ordered: Discontinued Medications Bumetanide (Bumetanide 1 Mg/4 Ml Vial) 2 mg IV NOW ONE Stop: 10/01/23 10:09 Last Admin: 10/01/23 11:30 Dose: 2 mg Documented By: PAOLA Insulin Human Regular (Insulin Regular 100 Unit/Ml 3 Ml Vial) 10 unit IV NOW ONE Stop: 10/01/23 10:10 Last Admin: 10/01/23 10:20 Dose: 10 unit Documented By: PAOLA Co-signed By: GIL Vital Signs Vital signs: Vital Signs - 8 hr 10/01/23 08:18 10/01/23 08:42 10/01/23 08:42 Temperature 98.1 F Pulse Rate 87 82 81 Respiratory Rate 16 20 16 Blood Pressure 214/113 H 202/136 H Pulse Oximetry 94 94 98 Oxygen Delivery Method Room Air Room Air 10/01/23 08:43 10/01/23 08:43 10/01/23 09:00 Temperature Pulse Rate 82 Respiratory Rate 11 L Blood Pressure 182/117 H 169/122 H Pulse Oximetry 98 Oxygen Delivery Method 10/01/23 09:00 10/01/23 09:20 10/01/23 09:20 Temperature Pulse Rate 82 79 Respiratory Rate 17 25 H Blood Pressure 166/109 H Pulse Oximetry 99 99 Oxygen Delivery Method 10/01/23 09:30 10/01/23 09:30 10/01/23 10:00 Temperature Pulse Rate 81 Respiratory Rate 15 Blood Pressure 180/115 H 171/109 H Pulse Oximetry 94 Oxygen Delivery Method 10/01/23 10:00 10/01/23 10:30 10/01/23 10:30 Temperature Pulse Rate 80 82 Respiratory Rate 12 16 Blood Pressure 177/104 H Pulse Oximetry 96 96 Oxygen Delivery Method 10/01/23 11:00 10/01/23 11:00 10/01/23 11:30 Temperature Pulse Rate 81 Respiratory Rate 14 Blood Pressure 187/109 H 171/107 H Pulse Oximetry 97 Oxygen Delivery Method 10/01/23 11:30 Temperature Pulse Rate 82 Respiratory Rate 17 Blood Pressure Pulse Oximetry 98 Oxygen Delivery Method Medical Decision Making Lab Data 10/01/23 09:25 10/01/23 09:25 Labs: Lab Results 10/01/23 10/01/23 10/01/23 Range/Units 09:13 09:25 10:16 WBC 8.8 (4.5-11.0) X10^3/uL RBC 3.94 L (4.5-5.9) X10^6/uL Hgb 12.7 L (13.5-17.5) g/dL Hct 37.6 L (41-53) % MCV 95.5 (80-100) fL MCH 32.2 (26-34) PG MCHC 33.7 (30-36) % RDW 14.7 (11.6-14.8) % Plt Count 214 (150-400) X10^3/uL Neut % (Auto) 89.8 H (50-75) % Lymph % (Auto) 4.6 L (25-40) % Daniels % (Auto) 5.3 (3-14) % Eos % (Auto) 0.0 L (2-4) % Baso % (Auto) 0.3 (0-2) % Neut # (Auto) 7900 H (3456-9282) /uL Lymph # (Auto) 400 L (0605-7972) /uL Daniels # (Auto) 500 (0-900) /uL Eos # (Auto) 0 (0-450) /uL Baso # (Auto) 0 (0-100) /uL PT 10.6 (9.4-12.5) SECONDS INR 0.9 (0.9-1.3) Sodium 131 L (137-145) mmol/L Potassium 4.9 (3.4-5.1) mmol/L Chloride 97 L (98-107) mmol/L Carbon Dioxide 23 (22-32) mmol/L BUN 76 H (9-20) mg/dL Creatinine 2.49 H (0.66-1.25) mg/dL Estimated GFR 28 L (>60) mL/min BUN/Creatinine Ratio 30.5 H (6-22) Glucose 662 H* (80-110) mg/dL Lactate 2.4 H (0.7-2.1) mmol/L Calcium 9.1 (8.4-10.2) mg/dL Magnesium 2.5 H (1.6-2.3) mg/dL Total Bilirubin 0.5 (0.2-1.3) mg/dL AST 22 (17-59) IU/L ALT 35 (<50) IU/L Alkaline Phosphatase 86 (38-126) U/L Total Creatine Kinase 78 (55-170) U/L Troponin I 0.042 H (0.01-0.034) ng/mL NT-Pro-B Natriuret Pep 1550 H (<125) pg/mL Total Protein 6.6 (6.3-8.2) g/dL Albumin 3.6 (3.5-5.0) g/dL Globulin 3.0 (1.7-4.1) g/dL Albumin/Globulin Ratio 1.2 (1.0-2.8) Urine RBC None seen (0-5/HPF) Urine WBC None seen (0-5/HPF) Ur Squamous Epith Cells 0-1 /hpf (0-5/HPF) Urine Bacteria None seen (None) Ur Culture Indicated? Cult not indicated Vol Urine Centrifuged 10ml (spun) Chlamy pneumoniae PCR Not detected (Not Detect) Adenovirus (PCR) Not detected (Not Detect) B.parapertussis DNA PCR Not detected (Not Detecte) Coronavirus OC43 (PCR) Not detected (Not Detect) Coronavirus HKU1 (PCR) Not detected (Not Detect) Coronavirus 229E (PCR) Not detected (Not Detect) SARS-CoV-2 (PCR) Not detected (Not Detecte) Coronavirus NL63 (PCR) Not detected (Not Detect) Human Metapneumovir PCR Not detected (Not Detect) Influenza Type A (PCR) Not detected (Not Detect) Influenza Type B (PCR) Not detected (Not Detect) M. pneumoniae (PCR) Not detected (Not Detect) Parainfluenza 1 (PCR) Not detected (Not Detect) Parainfluenza 2 (PCR) Not detected (Not Detect) Parainfluenza 3 (PCR) Not detected (Not Detect) Parainfluenza 4 (PCR) Not detected (Not Detect) RSV (PCR) Not detected (Not Detect) Entero/Rhino (PCR) Not detected (Not Detect) 10/01/23 Range/Units 11:15 WBC (4.5-11.0) X10^3/uL RBC (4.5-5.9) X10^6/uL Hgb (13.5-17.5) g/dL Hct (41-53) % MCV (80-100) fL MCH (26-34) PG MCHC (30-36) % RDW (11.6-14.8) % Plt Count (150-400) X10^3/uL Neut % (Auto) (50-75) % Lymph % (Auto) (25-40) % Daniels % (Auto) (3-14) % Eos % (Auto) (2-4) % Baso % (Auto) (0-2) % Neut # (Auto) (5796-6870) /uL Lymph # (Auto) (8277-0336) /uL Daniels # (Auto) (0-900) /uL Eos # (Auto) (0-450) /uL Baso # (Auto) (0-100) /uL PT (9.4-12.5) SECONDS INR (0.9-1.3) Sodium (137-145) mmol/L Potassium (3.4-5.1) mmol/L Chloride (98-107) mmol/L Carbon Dioxide (22-32) mmol/L BUN (9-20) mg/dL Creatinine (0.66-1.25) mg/dL Estimated GFR (>60) mL/min BUN/Creatinine Ratio (6-22) Glucose (80-110) mg/dL Lactate 2.0 (0.7-2.1) mmol/L Calcium (8.4-10.2) mg/dL Magnesium (1.6-2.3) mg/dL Total Bilirubin (0.2-1.3) mg/dL AST (17-59) IU/L ALT (<50) IU/L Alkaline Phosphatase (38-126) U/L Total Creatine Kinase (55-170) U/L Troponin I (0.01-0.034) ng/mL NT-Pro-B Natriuret Pep (<125) pg/mL Total Protein (6.3-8.2) g/dL Albumin (3.5-5.0) g/dL Globulin (1.7-4.1) g/dL Albumin/Globulin Ratio (1.0-2.8) Urine RBC (0-5/HPF) Urine WBC (0-5/HPF) Ur Squamous Epith Cells (0-5/HPF) Urine Bacteria (None) Ur Culture Indicated? Vol Urine Centrifuged Chlamy pneumoniae PCR (Not Detect) Adenovirus (PCR) (Not Detect) B.parapertussis DNA PCR (Not Detecte) Coronavirus OC43 (PCR) (Not Detect) Coronavirus HKU1 (PCR) (Not Detect) Coronavirus 229E (PCR) (Not Detect) SARS-CoV-2 (PCR) (Not Detecte) Coronavirus NL63 (PCR) (Not Detect) Human Metapneumovir PCR (Not Detect) Influenza Type A (PCR) (Not Detect) Influenza Type B (PCR) (Not Detect) M. pneumoniae (PCR) (Not Detect) Parainfluenza 1 (PCR) (Not Detect) Parainfluenza 2 (PCR) (Not Detect) Parainfluenza 3 (PCR) (Not Detect) Parainfluenza 4 (PCR) (Not Detect) RSV (PCR) (Not Detect) Entero/Rhino (PCR) (Not Detect) Urine Dip Bedside Urine Glucose 1000 mg/dl Bedside Urine Bilirubin - Negative Bedside Urine Ketone - Negative Urine Specific [place] 1.015 Bedside Urine Occult Blood + Bedside Urine pH 6.0 Bedside Urine Protein + 30 Bedside Urine Urobilinogen - Negative Bedside Urine Nitrite - Negative Bedside Urine Leukocytes - Negative Esterase Point of care testing: Urine Dip Bedside Urine Glucose 1000 mg/dl Bedside Urine Bilirubin - Negative Bedside Urine Ketone - Negative Urine Specific [place] 1.015 Bedside Urine Occult Blood + Bedside Urine pH 6.0 Bedside Urine Protein + 30 Bedside Urine Urobilinogen - Negative Bedside Urine Nitrite - Negative Bedside Urine Leukocytes - Negative Esterase Imaging Data Chest x-ray: Radiologist's Impression: PROCEDURE: XR CHEST 1V INDICATIONS: DYSPNEA, EDEMA TECHNIQUE: One view of the chest was acquired. COMPARISON: [facility], CHEST 2 VIEW, 05/06/2014, 11:51. FINDINGS: Surgical changes and devices: CABG Lungs and pleura: Lungs are clear. No pleural effusions or pneumothorax. Mediastinum: Mediastinal contours appear normal. Heart size is normal. Bones and chest wall: No suspicious bony lesions. Overlying soft tissues appear unremarkable. IMPRESSION: No acute cardiopulmonary abnormality is seen. Dictated by: Davin Helton M.D. on 10/01/2023 at 9:36 Approved by: Davin Helton M.D. on 10/01/2023 at 9:36 CT scan - head: Radiologist's Impression: PROCEDURE: CT HEAD/BRAIN WO CON INDICATIONS: HEADACHE, L EYE PROPTOSIS TECHNIQUE: Noncontrast 4.5 mm thick angled axial sections acquired from the foramen magnum to the vertex, with coronal and sagittal reformats. For radiation dose reduction, the following was used: automated exposure control, adjustment of mA and/or kV according to patient size. COMPARISON: None. FINDINGS: Image quality: Diagnostic. CSF spaces: Basal cisterns are patent. No extra-axial fluid collections. The ventricles are symmetric in size and shape. Brain: No intracranial bleeds or masses. There is cerebral volume loss for age, with resultant ventricular and sulcal prominence. There are periventricular and deep white matter chronic small vessel ischemic changes. There is intracranial internal carotid artery atherosclerosis. Skull and face: Calvarium and visualized facial bones appear intact, without suspicious lesions. Sinuses: Visualized sinuses demonstrate mucosal thickening and fluid levels predominantly within the maxillary sinuses bilaterally. IMPRESSION: 1. No acute intracranial process. 2. Mild atrophy and chronic microvascular ischemic changes. Dictated by: Winifred Goodwin M.D. on 10/01/2023 at 9:26 Approved by: Winifred Goodwin M.D. on 10/01/2023 at 9:28 ECG Data Interpretation: Normal sinus rhythm at 81 beats per minute. Normal [place]. No ST T wave changes, no STEMI MDM Narrative Additional Information: Chronically unwell appearing patient with bilateral lower extremity swelling and headache/facial pain for 1.5 weeks. Patient overall appears chronically unwell, in very poor health. Lungs are clear to auscultation bilaterally, but patient has extensive pitting edema. He states that he was chronic kidney disease but does not know what his normal creatinine is. It appears as though patient takes 20 mg of torsemide daily based on medications that patient has at bedside. Laboratory work and imaging ordered. Laboratory work shows WBC count 9.4, hemoglobin 12.7, platelets 226, INR 0.9, sodium 131, potassium 4.9, creatinine 2.49, glucose 662. Initial lactic acid 2.4 with repeat 2.0. Troponin 0.042, BNP 1550. EKG is normal sinus rhythm, patient was denying any chest pain or shortness of breath. Troponin is likely demand and poor clearance from chronic kidney disease. I was able to contact the [facility] for outside records. Patient had a hemoglobin A1c performed in the last month that showed a value of 12.4. Patient states that he has never been talked to about his worsening diabetes or insulin usage. He was never used insulin before in his very reluctant to try insulin at this time. In order to bring blood glucose down he was given 10 units of regular insulin in the emergency department. For his edema he was given 2 mg of Bumex and he started to diurese. Creatinine today seems to be about patient's baseline, with GFR chronically in the mid 20s range. I attempted to reach out to the patient's primary care clinic, however despite numerous calls was unable to reach a provider to arrange a follow up appointment. Based on patient's kidney disease he was not a candidate for metformin and with his reluctant to start insulin as well as being insulin naive he is not a candidate at this time for this medication. After discussion with on-call hospitalist it was recommended starting patient on low- dose glipizide for gradual glucose control. Patient was counseled on the importance of following up with his primary care doctor based on his A1c as well as elevated glucoses here. Patient counseled to increase his torsemide to 40 mg daily to help with his edema. Discharge Plan Departure Patient Disposition: Home Clinical Impression: Hyperglycemia, Acute infection of nasal sinus, Bilateral edema of lower extremity Instructions: DI for Sinusitis, DI for Diabetes Type 2 Activity Restrictions/Additional Instructions: There were several issues that we addressed at your emergency department visit today. Firstly, you had very high blood sugars today, indicating that you have diabetes. I am starting you on a new medication for your diabetes called glipizide. Take this daily to help begin to lower your sugars, however it was very likely that you will need to be on insulin in the future. For your lower extremity swelling I recommend increasing your torsemide to to full tablets daily for the next week. Lastly, you appear to have a sinus infection. Since this has been present for 10 days I will start you on antibiotics. It was extremely important that you call your primary care doctor's office at the [facility] for a follow up appointment. Your sugars and lower extremity swelling we will need to be very closely monitored by your doctors. Prescriptions: New glipizide 2.5 mg tablet 2.5 mg PO DAILY Qty: 30 0RF amoxicillin-pot clavulanate 875-125 mg tablet 1 tab PO Q12H Qty: 14 0RF No Action lisinopril 20 MG tablet 20 mg PO QDAY Qty: 0 potassium citrate 5 mEq (540 mg) tablet extended release 10 meq PO BID Tarpeyo 4 mg Capsule,Delayed Release(Dr/Ec) 16 mg PO DAILY isosorbide mononitrate tablet 60 tab PO 1XD carvedilol 25 tab PO 1-2XD Adult Low Dose Aspirin 81 mg Tablet 81 mg PO DAILY torsemide 20 mg Tablet 20 mg PO DAILY omeprazole tablet 40 tab PO DAILY allopurinol 300 mg Tablet 300 mg PO DAILY ezetimibe 10 mg Tablet 10 mg PO DAILY valsartan 160 tab PO DAILY cetirizine capsule 10 caplet PO DAILY Referrals: Miscellaneous,Doctor, MD [Primary Care Provider] - Stand Alone Forms: Patient Portal/API
[2023-10-01 09:34] LABS: Add Manual Diff / Slide Review NO; Basophils Absolute Auto 0 /uL (0-100); Basophils Percent Auto 0.3 % (0-2); Eosinophils Absolute Auto 0 /uL (0-450); Hematocrit 37.6 % (41-53); Hemoglobin 12.7 g/dL (13.5-17.5); Lymphocytes Absolute Auto 400 /uL (1100-4500); Lymphocytes Percent Auto 4.6 % (25-40); Mean Corpuscular HGB Conc 33.7 % (30-36); Mean Corpuscular Hemoglobin 32.2 PG (26-34); Mean Corpuscular Volume 95.5 fL (80-100); Monocytes Absolute Auto 500 /uL (0-900); Monocytes Percent Auto 5.3 % (3-14); Neutrophils Absolute Auto 7900 /uL (1500-7000); Neutrophils Percent Auto 89.8 % (50-75); Platelet Count 214 X10^3/uL (150-400); Red Blood Cell Count 3.94 X10^6/uL (4.5-5.9); Red Cell Distribution Width 14.7 % (11.6-14.8); White Blood Cell Count 8.8 X10^3/uL (4.5-11.0)
[2023-10-01 09:44] LABS: INR 0.9 (0.9-1.3); Prothrombin Time 10.6 SECONDS (9.4-12.5)
[2023-10-01 09:50] LABS: Alanine Aminotransferase 35 IU/L (<50); Albumin 3.6 g/dL (3.5-5.0); Albumin Globulin Ratio 1.2 (1.0-2.8); Alkaline Phosphatase 86 U/L (38-126); Aspartate Aminotransferase 22 IU/L (17-59); BUN Creatinine Ratio 30.5 (6-22); Bilirubin Total 0.5 mg/dL (0.2-1.3); Blood Urea Nitrogen 76 mg/dL (9-20); Calcium 9.1 mg/dL (8.4-10.2); Carbon Dioxide 23 mmol/L (22-32); Chloride 97 mmol/L (98-107); Creatine Kinase 78 U/L (55-170); Estimated Glomerular Filt Rate 28 mL/min (>60); Lactate (Lactic Acid) 2.4 mmol/L (0.7-2.1); Magnesium 2.5 mg/dL (1.6-2.3); Potassium 4.9 mmol/L (3.4-5.1); Sodium 131 mmol/L (137-145); Total Protein 6.6 g/dL (6.3-8.2)
[2023-10-01 10:00] LABS: NT-proBNP (BNP-Adult 18+) 1550 pg/mL (<125); Troponin I 0.042 ng/mL (0.01-0.034)
[2023-10-01 10:06] LABS: HEMOLYSIS 21 (0-50)
[2023-10-01 10:07] LABS: Glucose 662 mg/dL (80-110)
[2023-10-01 10:20] LABS: Adenovirus Not Detected (Not Detect); B. parapertussis Not Detected (Not Detecte); Bordetella pertussis Not Detected (Not Detect); Chlamydophila pneumoniae Not Detected (Not Detect); Coronavirus 229E Not Detected (Not Detect); Coronavirus HKU1 Not Detected (Not Detect); Coronavirus NL 63 Not Detected (Not Detect); Coronavirus OC43 Not Detected (Not Detect); Human Metapneumovirus Not Detected (Not Detect); Human Rhinovirus/Enterovirus Not Detected (Not Detect); Influenza A Not Detected (Not Detect); Influenza B Not Detected (Not Detect); Mycoplasma pneumoniae Not Detected (Not Detect); Parainfluenza Virus 1 Not Detected (Not Detect); Parainfluenza Virus 2 Not Detected (Not Detect); Parainfluenza Virus 3 Not Detected (Not Detect); Parainfluenza Virus 4 Not Detected (Not Detect); Respiratory Syncytial Virus Not Detected (Not Detect); SARS- CoV-2 Not Detected (Not Detecte)
[2023-10-01] MEDS: INSULIN REGULAR 100 UNIT/ML 3 ML VIAL 10 UNIT IV (10:20)
[2023-10-01 10:34] LABS: Urine Volume 10mL (spun)
[2023-10-01 10:38] LABS: Bacteria Urine None Seen; Culture Indicated Urine Cult Not Indicated; RBC Urine None Seen (0-5/HPF); Squamous Epithelial Cell Urine 0-1 /HPF (0-5/HPF); WBC Urine None Seen (0-5/HPF)
[2023-10-01 11:07] LABS: Reflexed Lactate in 2 Hours Y
[2023-10-01] MEDS: BUMETANIDE 1 MG/4 ML VIAL 2 MG IV (11:30)
== END 2023-10-01 12:18 | disposition home or self-care (01) ==
PROVIDERS: Emergency Provider Emergency Medicine
DX: E11.65 Type 2 diabetes mellitus with hyperglycemia (principal); J01.90 Acute sinusitis, unspecified; R60.0 Localized edema; Z79.84 Long term (current) use of oral hypoglycemic drugs
CPT/HCPCS: 36415; 70450; 71045; 80053; 81003; 81015; 82550; 83605; 83735; 83880; 84484; 85025; 85610; 87633; 93005

== ENCOUNTER 2023-10-01 18:36 | Emergency (ER) | payer OTHER, SELFPAY ==
[2023-10-01] VITALS (7 sets, daily range): BP systolic 147–196; BP diastolic 97–114; PULSE 89–93; RESP 14–18; TEMP 36.6; O2SAT 93–98; BMI 30.2
--- NOTE | 2023-10-01 19:08 | ED.RECABL ---
HPI - Recheck/Abnormal Lab/Rx General Chief Complaint: Recheck/Abnormal Lab/Rx Stated Complaint: states blood count too high Time Seen by Provider: 10/01/23 19:04 Source: patient Mode of arrival: Ambulatory History of Present Illness HPI narrative: 62-year-old male with history of diabetes, elevated blood sugar, evaluated earlier today, had elevated blood sugars, was prescribed new dose of glipizide which she had not filled yet, [facility], because blood sugar was greater than 500 he was advised to come back here. Accu-Chek here confirms sugar greater than 500. When asked what he would like to do, he would like to have the sugar lowered, including blood work and IV fluids and IV insulin. He does not have any fevers or chills. He has no shortness of breath or chest pain. He has no nausea vomiting or diarrhea. Related Data Home Medications Medication Instructions Recorded Confirmed lisinopril 20 mg tablet 20 mg PO QDAY ##0 03/10/16 02/05/23 allopurinol 300 mg tablet 300 mg PO DAILY 10/01/23 10/01/23 aspirin 81 mg tablet 81 mg PO DAILY 10/01/23 10/01/23 budesonide 4 mg capsule,delayed 16 mg PO DAILY 10/01/23 10/01/23 release (Tarpeyo) carvedilol 25 tab PO 1-2XD 10/01/23 10/01/23 cetirizine 10 caplet PO DAILY 10/01/23 10/01/23 ezetimibe 10 mg tablet 10 mg PO DAILY 10/01/23 10/01/23 isosorbide mononitrate 60 tab PO 1XD 10/01/23 10/01/23 omeprazole 40 tab PO DAILY 10/01/23 10/01/23 potassium citrate 5 mEq (540 mg) 10 meq PO BID 10/01/23 10/01/23 tablet,extended release torsemide 20 mg tablet 20 mg PO DAILY 10/01/23 10/01/23 valsartan 160 tab PO DAILY 10/01/23 10/01/23 Previous Rx's Medication Instructions Recorded amoxicillin 875 mg-potassium 1 tab PO Q12H #14 tabs 10/01/23 clavulanate 125 mg tablet glipizide 2.5 mg tablet 2.5 mg PO DAILY #30 tabs 10/01/23 Allergies Allergy/AdvReac Type Severity Reaction Status Date / Time aspirin Allergy Severe Hives Verified 10/01/23 18:55 Review of Systems Review of Systems Narrative: see HPI Patient History Medical History CKD (chronic kidney disease) History of nephrolithiasis Left nephrolithiasis Allergies CAD (coronary artery disease) Hyperlipidemia Gout attack HTN (hypertension) Surgical History Status post aorto-coronary artery bypass graft Social History Smoking Status: Never smoker substance use type: does not use Smoking Status: Never smoker alcohol intake frequency: holidays/special occasions only Substance Use Type: does not use Exam Narrative Exam Narrative: GENERAL: Well-developed patient, in mild distress. HEAD: Atraumatic. Normocephalic. EYES: Pupils equal round and reactive. Extraocular motions intact. No scleral icterus. No injection or drainage. ENT: Nose without bleeding, purulent drainage. Throat without erythema, tonsillar hypertrophy or exudate. Airway patent. NECK: Trachea midline. Non tender CARDIOVASCULAR: Regular rate and rhythm without murmurs, gallops, or rubs. RESPIRATORY: Clear to auscultation. Breath sounds equal bilaterally. No wheezes, rales, or rhonchi. GASTROINTESTINAL: Abdomen soft, non-tender, nondistended. EXTREMITIES: No edema or joint tenderness. BACK: Nontender without deformity or crepitance. No flank tenderness. NEURO: AOx3. SKIN: No rash or erythema of visible areas Initial Vital Signs Initial Vital Signs: Vital Signs Temperature 97.9 F 10/01/23 18:50 Pulse Rate 92 H 10/01/23 18:50 Respiratory Rate 14 10/01/23 18:50 Blood Pressure 147/97 H 10/01/23 18:50 Pulse Oximetry 96 10/01/23 18:50 Oxygen Delivery Method Room Air 10/01/23 18:50 Course Orders Ordered: ED Orders 10/01/23 19:30 BMP [Basic Metabolic Panel] Stat CBC Auto Diff [Complete Blood Count AUTO DIFF] Stat Discontinued Medications Sodium Chloride (Normal Saline 0.9%) 1,000 mls @ 1,000 mls/hr IV BOLUS ONE Stop: 10/01/23 20:03 Last Infusion: 10/01/23 20:40 Dose: Infused Documented By: Admin: 10/01/23 19:40 Dose: 1,000 mls/hr Documented By: Sodium Chloride (Normal Saline 0.9%) 1,000 mls @ 1,000 mls/hr IV BOLUS ONE Stop: 10/01/23 23:35 Last Infusion: 10/01/23 23:48 Dose: Infused Documented By: Admin: 10/01/23 22:45 Dose: 1,000 mls/hr Documented By: KAMILLE Insulin Human Regular (Insulin Regular 100 Unit/Ml 3 Ml Vial) 10 unit IV NOW ONE Stop: 10/01/23 20:44 Last Admin: 10/01/23 21:16 Dose: 10 unit Documented By: Co-signed By: PAOLA Vital Signs Vital signs: Vital Signs - 8 hr 10/01/23 20:00 10/01/23 20:00 10/01/23 20:02 Pulse Rate 89 90 Respiratory Rate Blood Pressure 196/114 H Pulse Oximetry 98 98 Oxygen Delivery Method 10/01/23 20:02 10/01/23 20:30 10/01/23 20:30 Pulse Rate 90 Respiratory Rate Blood Pressure 179/112 H 194/110 H Pulse Oximetry 98 Oxygen Delivery Method 10/01/23 21:00 10/01/23 21:00 10/02/23 00:15 Pulse Rate 89 101 H Respiratory Rate 18 18 Blood Pressure 153/105 H 186/109 H Pulse Oximetry 97 97 Oxygen Delivery Method Room Air MDM - Recheck/Abnormal Lab/Rx Lab Data 10/01/23 19:30 10/01/23 19:30 Labs: Lab Results 10/01/23 Range/Units 19:30 WBC 9.4 (4.5-11.0) X10^3/uL RBC 3.91 L (4.5-5.9) X10^6/uL Hgb 12.7 L (13.5-17.5) g/dL Hct 37.0 L (41-53) % MCV 94.7 (80-100) fL MCH 32.5 (26-34) PG MCHC 34.3 (30-36) % RDW 15.4 H (11.6-14.8) % Plt Count 226 (150-400) X10^3/uL Neut % (Auto) 90.6 H (50-75) % Lymph % (Auto) 4.7 L (25-40) % Mitchell % (Auto) 4.4 (3-14) % Eos % (Auto) 0.0 L (2-4) % Baso % (Auto) 0.3 (0-2) % Neut # (Auto) 8500 H (3494-6814) /uL Lymph # (Auto) 400 L (7845-8884) /uL Mitchell # (Auto) 400 (0-900) /uL Eos # (Auto) 0 (0-450) /uL Baso # (Auto) 0 (0-100) /uL Sodium 133 L (137-145) mmol/L Potassium 4.6 (3.4-5.1) mmol/L Chloride 99 (98-107) mmol/L Carbon Dioxide 29 (22-32) mmol/L BUN 86 H (9-20) mg/dL Creatinine 3.00 H (0.66-1.25) mg/dL Estimated GFR 22 L (>60) mL/min BUN/Creatinine Ratio 28.7 H (6-22) Glucose 560 H* (80-110) mg/dL Calcium 9.1 (8.4-10.2) mg/dL Point of Care Testing Glucose POC 351 MDM Narrative Medical decision making narrative: 62-year-old male with history of diabetes, seen earlier today, elevated blood sugars, was prescribed glipizide new medication, unable to refill, was told that he should be coming back to the emergency department because his sugars greater than 500, he would like treatment for his sugar, he has not yet filled his glipizide prescription. Afebrile, sirs screen negative. Labs sent. IV fluid bolus Glucose elevated confirmed, also BUN creatinine elevated, creat 3 today was 2.5 prior, IV fluid given, repeat glucose 300s after IV fluids and IV insulin. Advised to take his glipizide that he just filled. Follow up for further diabetes management with his primary care provider. Return precautions discussed Critical Care Time Critical Care Time Total Critical Care Time: 31 Attestation: The high probability of a clinically significant, sudden or life threatening deterioration of the [endocrine, cardiopulmonary,] system(s) required my full and direct attention, intervention and personal management. The aggregate critical care time was [35] minutes. This time is in addition to time spent performing reported procedures but includes the following: [x] Data Review and interpretation [x] Patient assessment and monitoring of vital signs [x] Documentation [x] Medication orders and management Discharge Plan Departure Patient Disposition: Home Clinical Impression: Hyperglycemia, History of diabetes mellitus Activity Restrictions/Additional Instructions: Elevated blood sugar, prescribed oral diabetic medication not yet taken, sugar was high tonight, IV fluids and IV insulin given, sugar improved to the 300s range, which is not normal but improved from previous range. Take your oral diabetic medication as planned, further titration of diabetic medications as an outpatient. Follow up with your regular provider. Drink plenty of fluids to keep from being dehydrated. Your kidney function look like you might be dehydrated. Follow up repeat kidney function studies with your regular doctor in the next few days. Return earlier to this/nearest emergency department for any change worsening symptoms or any concerns prior Prescriptions: No Action lisinopril 20 MG tablet 20 mg PO QDAY Qty: 0 potassium citrate 5 mEq (540 mg) tablet extended release 10 meq PO BID Tarpeyo 4 mg Capsule,Delayed Release(Dr/Ec) 16 mg PO DAILY isosorbide mononitrate tablet 60 tab PO 1XD carvedilol 25 tab PO 1-2XD Adult Low Dose Aspirin 81 mg Tablet 81 mg PO DAILY torsemide 20 mg Tablet 20 mg PO DAILY omeprazole tablet 40 tab PO DAILY allopurinol 300 mg Tablet 300 mg PO DAILY ezetimibe 10 mg Tablet 10 mg PO DAILY valsartan 160 tab PO DAILY cetirizine capsule 10 caplet PO DAILY glipizide 2.5 mg tablet 2.5 mg PO DAILY Qty: 30 0RF amoxicillin-pot clavulanate 875-125 mg tablet 1 tab PO Q12H Qty: 14 0RF Referrals: Miscellaneous,Doctor, MD [Primary Care Provider] - Stand Alone Forms: Patient Portal/API
[2023-10-01] MEDS: SODIUM CHLORIDE 0.9% 1,000 ML 1000 ML IV ×2 (19:40→22:45)
[2023-10-01 19:46] LABS: Add Manual Diff / Slide Review NO; BUN Creatinine Ratio 28.7 (6-22); Basophils Absolute Auto 0 /uL (0-100); Basophils Percent Auto 0.3 % (0-2); Blood Urea Nitrogen 86 mg/dL (9-20); Calcium 9.1 mg/dL (8.4-10.2); Carbon Dioxide 29 mmol/L (22-32); Chloride 99 mmol/L (98-107); Eosinophils Absolute Auto 0 /uL (0-450); Estimated Glomerular Filt Rate 22 mL/min (>60); HEMOLYSIS 21 (0-50); Hemoglobin 12.7 g/dL (13.5-17.5); Lymphocytes Absolute Auto 400 /uL (1100-4500); Lymphocytes Percent Auto 4.7 % (25-40); Mean Corpuscular HGB Conc 34.3 % (30-36); Mean Corpuscular Hemoglobin 32.5 PG (26-34); Mean Corpuscular Volume 94.7 fL (80-100); Monocytes Absolute Auto 400 /uL (0-900); Monocytes Percent Auto 4.4 % (3-14); Neutrophils Absolute Auto 8500 /uL (1500-7000); Neutrophils Percent Auto 90.6 % (50-75); Platelet Count 226 X10^3/uL (150-400); Potassium 4.6 mmol/L (3.4-5.1); Red Blood Cell Count 3.91 X10^6/uL (4.5-5.9); Red Cell Distribution Width 15.4 % (11.6-14.8); Sodium 133 mmol/L (137-145); White Blood Cell Count 9.4 X10^3/uL (4.5-11.0)
[2023-10-01 19:50] LABS: Glucose 560 mg/dL (80-110)
[2023-10-01] MEDS: INSULIN REGULAR 100 UNIT/ML 3 ML VIAL 10 UNIT IV (21:16)
[2023-10-02 00:15] VITALS: BP 186/109; PULSE 101; RESP 18; O2SAT 97
== END 2023-10-02 00:29 | disposition home or self-care (01) ==
PROVIDERS: Emergency Provider Emergency Medicine
DX: E11.65 Type 2 diabetes mellitus with hyperglycemia (principal); J01.90 Acute sinusitis, unspecified; R60.0 Localized edema; Z79.84 Long term (current) use of oral hypoglycemic drugs
CPT/HCPCS: 36415; 70450; 71045; 80048; 80053; 81003; 81015; 82550; 82962; 83605; 83735; 83880; 84484; 85025; 85610; 87633; 93005; 96361; 96374; 96375; 99284

== ENCOUNTER 2024-11-13 05:53 | Emergency (ER) | payer OTHER, SELFPAY ==
--- NOTE | 2024-11-13 05:59 | ED.EAR ---
HPI - Ear Problem General Chief complaint: Ear Stated complaint: Lt Ear Ache, Pain in ear when swallowing Time Seen by Provider: 11/13/24 05:59 Source: patient, RN notes reviewed and old records reviewed Mode of arrival: Ambulatory Limitations: no limitations History of Present Illness HPI Narrative: 62-year-old male history of diabetes, CABG, CKD stage 4, hypertension with recent sinus surgery [address] Vyas at . Patient states he has had 5 sinus surgeries total. Patient presents with complaint of left ear pain starting overnight. Patient notes some discomfort radiating from the left ear down towards the left jaw sinus region. Has not had any drainage from his ear. He states he has had some mild bloody drainage from his nose but that is been improving over time. He denies fevers or chills. No nausea or vomiting. No chest pain or shortness of breath. Patient states no changes to voice but has has a little bit of a sore throat. Patient denies any stridor or difficulty breathing. He is on micafungin infusion daily since February and was discharged on Augmentin postoperatively. He denies any anticoagulants. Reports an allergy to aspirin develops hives. No tobacco, alcohol or recreational drugs. Related Data Home Medications ?Medication ?Instructions ?Recorded ?Confirmed lisinopril 20 mg tablet 20 mg PO QDAY ##0 03/10/16 02/05/23 allopurinol 300 mg tablet 300 mg PO DAILY 10/01/23 10/01/23 aspirin 81 mg tablet 81 mg PO DAILY 10/01/23 10/01/23 budesonide 4 mg capsule,delayed 16 mg PO DAILY 10/01/23 10/01/23 release (Tarpeyo) carvedilol 25 tab PO 1-2XD 10/01/23 10/01/23 cetirizine 10 caplet PO DAILY 10/01/23 10/01/23 ezetimibe 10 mg tablet 10 mg PO DAILY 10/01/23 10/01/23 isosorbide mononitrate 60 tab PO 1XD 10/01/23 10/01/23 omeprazole 40 tab PO DAILY 10/01/23 10/01/23 torsemide 20 mg tablet 20 mg PO DAILY 10/01/23 10/01/23 valsartan 160 tab PO DAILY 10/01/23 10/01/23 Previous Rx's ?Medication ?Instructions ?Recorded amoxicillin 875 mg-potassium 1 tab PO Q12H #14 tabs 10/01/23 clavulanate 125 mg tablet glipizide 2.5 mg tablet 2.5 mg PO DAILY #30 tabs 10/01/23 potassium citrate 5 mEq (540 mg) 10 meq (2 x 5 mEq (540 mg)) PO BID 12/31/23 tablet,extended release #120 tabs Allergies Allergy/AdvReac Type Severity Reaction Status Date / Time aspirin Allergy Severe Hives Verified 10/01/23 18:55 Review of Systems Review of Systems ROS Unobtainable: All systems reviewed & are unremarkable except as noted in HPI and below Patient History Medical History CKD (chronic kidney disease) History of nephrolithiasis Left nephrolithiasis Allergies CAD (coronary artery disease) Hyperlipidemia Gout attack HTN (hypertension) Surgical History Status post aorto-coronary artery bypass graft Social History substance use type: does not use alcohol intake frequency: holidays/special occasions only Exam Narrative Exam Narrative: GEN: well nourished, well appearing male, alert and oriented x 3, patient appears to be in mild distress. HEENT: Atraumatic, pupils are equal round reactive to light, extraocular movements are intact, patient had white 4 x 4 rolled up and inserted into the nares, when removed there is a scant amount of blood on the right eye side of the bandage but no active bleeding or dried blood within the nares., TMs are clear with no fluid bilaterally, there is no conjunctival pallor. Throat is clear without any exudates, erythema, tonsillar enlargement or uvular deviation, no bony tenderness, no swelling of the cheeks or neck is appreciated. Patient's sounds slightly hoarse but states this is his normal voice. No stridor. No muffled voice. No difficulty with secretions or swallowing. No warmth, erythema or other skin changes. HEART: Regular rate and rhythm without murmur, clicks, rubs. LUNGS:Lungs clear to auscultation, no wheezes, rales, crackles, chest moves symmetrically ABD:bowel sounds normal, soft, non-tender, no guarding, rebound, rigidity, no masses noted, no hepatosplenomegaly MSCL: full range of motion, ambulates with cane without issue. NEURO:CN 2-12 intact, sensation normal. Initial Vital Signs Initial Vital Signs: Vital Signs Temperature 99.3 F 11/13/24 06:11 Pulse Rate 89 11/13/24 06:11 Respiratory Rate 18 11/13/24 06:11 Blood Pressure 97/58 L 11/13/24 06:11 Pulse Oximetry 98 11/13/24 06:11 Oxygen Delivery Method Room Air 11/13/24 06:11 Course Orders Ordered: ED Orders 11/13/24 06:15 CT facial bones wo con Stat Vital Signs Vital signs: Vital Signs - 8 hr 11/13/24 06:11 Temperature 99.3 F Pulse Rate 89 Respiratory Rate 18 Blood Pressure 97/58 L Pulse Oximetry 98 Oxygen Delivery Method Room Air Medical Decision Making [facility] Narrative Medical decision making narrative: Patient comes in with complaint of left ear pain, ears are clear on examination he is currently on Augmentin and has been micafungin IV for fungal infections in his sinuses since February he has had multiple sinus surgeries most recently as postop day 5. Patient is overall well-appearing we will order CT imaging based on his what sounds like complicated sinus history. Because it patient has CKD stage 4 we will defer IV contrast. CT imaging Discharge Plan Departure Clinical Impression: Ear pain, left Prescriptions: No Action lisinopril 20 MG tablet 20 mg PO QDAY Qty: 0 potassium citrate 5 mEq (540 mg) tablet extended release 10 meq PO BID Qty: 120 0RF Tarpeyo 4 mg Capsule,Delayed Release(Dr/Ec) 16 mg PO DAILY isosorbide mononitrate tablet 60 tab PO 1XD carvedilol 25 tab PO 1-2XD Adult Low Dose Aspirin 81 mg Tablet 81 mg PO DAILY torsemide 20 mg Tablet 20 mg PO DAILY omeprazole tablet 40 tab PO DAILY allopurinol 300 mg Tablet 300 mg PO DAILY ezetimibe 10 mg Tablet 10 mg PO DAILY valsartan 160 tab PO DAILY cetirizine capsule 10 caplet PO DAILY glipizide 2.5 mg tablet 2.5 mg PO DAILY Qty: 30 0RF amoxicillin-pot clavulanate 875-125 mg tablet 1 tab PO Q12H Qty: 14 0RF Referrals: Miscellaneous,DoctorMD [Primary Care Provider, Medical]
[2024-11-13 06:11] VITALS: BP 97/58; PULSE 89; RESP 18; TEMP 37.4; O2SAT 98; BMI 23.6
--- NOTE | 2024-11-13 06:15 | DI.CT.S_ITS ---
PROCEDURE: CT FACIAL BONES WO CON INDICATIONS: pod#5 sinus sx, L ear pain, on IV antifungal, sinus sx x5 TECHNIQUE: Noncontrast 2.5 mm thick axial images acquired from the mandible through the frontal sinuses, with coronal and sagittal reformatting. For radiation dose reduction, the following was used: automated exposure control, adjustment of mA and/or kV according to patient size. COMPARISON: [facility], CR, XR CHEST 1V, 10/01/2023, 9:03. [facility], CT, CT HEAD/BRAIN WO CON, 10/01/2023, 9:16. FINDINGS: Image quality: Excellent. Bones and teeth: Orbital beckwith are intact. Sinus beckwith show no fracture or deformity. Nasal bones and septum are intact. Visualized portions of the mandible demonstrate no fractures or subluxation. Zygomatic arches are intact. Pterygoid plates are intact. Visualized portions of the skull base and auditory canals are intact. Sinuses: Left antrectomy change can be seen. There is moderate mucosal thickening within the left maxillary sinus and the left frontal sinus. The ethmoid air cells have been removed. Significant paranasal sinus disease can be seen on the right, with subtotal opacification of the right frontal sinus, right ethmoid air cells and the right maxillary sinus. The right sphenoid sinus is completely opacified. There is abnormal soft tissue/fluid seen with inferior left middle ear cavity, as seen on series 4, image 63. Soft tissues: No edema, masses, or fluid collections. No enlarged lymph nodes. No soft tissue lacerations or debris. Vascular: Visualized vascular structures appear normal in the absence of contrast. Bony vascular foramina and canals are intact. A right-sided central line is partially seen. IMPRESSION: There is abnormal soft tissue/fluid density seen within the inferior left middle ear cavity, which is consistent with otitis media. [id number] left mastoid air cell fluid can be seen. Postoperative change can be seen on the left sinuses, with extensive antrectomy. Extensive paranasal sinus disease can be seen, right worse than left. Note: This case (including differences between this final report and the preliminary report) discussed by telephone with Dr. Lilly at 9:41 a.m. Mccreary time on November 13, 2024. Dictated by: Arcadio Mitchell M.D. on 11/13/2024 at 8:35 Approved by: Arcadio Mitchell M.D. on 11/13/2024 at 8:46
--- NOTE | 2024-11-13 06:55 | ED.EAR ---
HPI - Ear Problem <Slyviaskip Sanchezstephie, DO - Last Filed: 11/17/24 19:00> General Chief complaint: Ear Stated complaint: Lt Ear Ache, Pain in ear when swallowing Time Seen by Provider: 11/13/24 05:59 Source: patient, RN notes reviewed and old records reviewed Mode of arrival: Ambulatory History of Present Illness HPI Narrative: 64-year-old male history of CABG, hypertension, dyslipidemia, CKD stage IV, patient has postop day 5 for sinus surgery with Dr. Vyas, patient has been on IV micafungin since February was discharged on amoxicillin postoperatively. Patient has had 5 sinus surgeries for this issue. Notes a little bit of mild bleeding which has been improving since his surgery. Presents as he had new left ear pain that started yesterday. Patient denies any drainage from his ear. No fevers. No erythema. No facial swelling. He states the pain in his sinuses has been improving but still present. Patient denies any hoarseness or voice changes. Denies any difficulty with secretions or swallowing. No chest pain, no shortness of breath. No nausea or vomiting no other GI or urinary symptoms. Patient notes allergy to aspirin. No tobacco, occasional alcohol, no recreational drugs. Related Data Home Medications ?Medication ?Instructions ?Recorded ?Confirmed lisinopril 20 mg tablet 20 mg PO QDAY ##0 03/10/16 02/05/23 allopurinol 300 mg tablet 300 mg PO DAILY 10/01/23 10/01/23 aspirin 81 mg tablet 81 mg PO DAILY 10/01/23 10/01/23 budesonide 4 mg capsule,delayed 16 mg PO DAILY 10/01/23 10/01/23 release (Tarpeyo) carvedilol 25 tab PO 1-2XD 10/01/23 10/01/23 cetirizine 10 caplet PO DAILY 10/01/23 10/01/23 ezetimibe 10 mg tablet 10 mg PO DAILY 10/01/23 10/01/23 isosorbide mononitrate 60 tab PO 1XD 10/01/23 10/01/23 omeprazole 40 tab PO DAILY 10/01/23 10/01/23 torsemide 20 mg tablet 20 mg PO DAILY 10/01/23 10/01/23 valsartan 160 tab PO DAILY 10/01/23 10/01/23 Previous Rx's ?Medication ?Instructions ?Recorded amoxicillin 875 mg-potassium 1 tab PO Q12H #14 tabs 10/01/23 clavulanate 125 mg tablet glipizide 2.5 mg tablet 2.5 mg PO DAILY #30 tabs 10/01/23 potassium citrate 5 mEq (540 mg) 10 meq (2 x 5 mEq (540 mg)) PO BID 12/31/23 tablet,extended release #120 tabs Allergies Allergy/AdvReac Type Severity Reaction Status Date / Time aspirin Allergy Severe Hives Verified 10/01/23 18:55 Review of Systems <Sylvia Gilbert DO - Last Filed: 11/17/24 19:00> Review of Systems ROS Unobtainable: All systems reviewed & are unremarkable except as noted in HPI and below Patient History <Sylvia Gilbert DO - Last Filed: 11/17/24 19:00> Medical History CKD (chronic kidney disease) History of nephrolithiasis Left nephrolithiasis Allergies CAD (coronary artery disease) Hyperlipidemia Gout attack HTN (hypertension) Surgical History Status post aorto-coronary artery bypass graft Social History Smoking Status: Never smoker substance use type: does not use Smoking Status: Never smoker alcohol intake frequency: holidays/special occasions only Exam <Sylvia Gilbert DO - Last Filed: 11/17/24 19:00> Narrative Exam Narrative: GEN: well nourished, well appearing male, alert and oriented x 3, patient appears to be in mild distress. HEENT: Atraumatic, pupils are equal round reactive to light, extraocular movements are intact, patient removed bandage, had scant amount of blood on the bandage in the right [place], no active bleeding in the nares themselves are clear, no foul odor, TMs are clear with no fluid, there is no conjunctival pallor. Throat is clear without any exudates, erythema, tonsillar enlargement or uvular deviation, no stridor, patient sounds hoarse but states this is his normal voice. No difficulty with swallowing. No erythema. Patient has nontender over the area of pain. HEART: Regular rate and rhythm without murmur, clicks, rubs. No carotid bruits, pulses are equal in upper and lower extremities LUNGS:Lungs clear to auscultation, no wheezes, rales, crackles, chest moves symmetrically ABD:bowel sounds normal, soft, non-tender, no guarding, rebound, rigidity, no masses noted, no hepatosplenomegaly MSCL: full range of motion, walks with can. NEURO:CN 2-12 intact, sensation normal Initial Vital Signs Initial Vital Signs: Vital Signs Temperature 99.3 F 11/13/24 06:11 Pulse Rate 89 11/13/24 06:11 Respiratory Rate 18 11/13/24 06:11 Blood Pressure 97/58 L 11/13/24 06:11 Pulse Oximetry 98 11/13/24 06:11 Oxygen Delivery Method Room Air 11/13/24 06:11 <Walter Lilly DO - Last Filed: 11/13/24 08:47> Initial Vital Signs Initial Vital Signs: Vital Signs Temperature 99.3 F 11/13/24 06:11 Pulse Rate 89 11/13/24 06:11 Respiratory Rate 18 11/13/24 06:11 Blood Pressure 97/58 L 11/13/24 06:11 Pulse Oximetry 98 11/13/24 06:11 Oxygen Delivery Method Room Air 11/13/24 06:11 Course <Sylvia Gilbert, DO - Last Filed: 11/17/24 19:00> Orders Ordered: Discontinued Medications Ceftriaxone Sodium (Ceftriaxone 2,000 Mg Vial) 1,000 mg IM NOW ONE Stop: 11/13/24 08:46 Last Admin: 11/13/24 09:06 Dose: 1,000 mg Documented By: MPO Vital Signs Vital signs: Vital Signs - 8 hr 11/13/24 06:11 Temperature 99.3 F Pulse Rate 89 Respiratory Rate 18 Blood Pressure 97/58 L Pulse Oximetry 98 Oxygen Delivery Method Room Air <Walter Lilly DO - Last Filed: 11/13/24 08:47> Orders Ordered: Discontinued Medications Ceftriaxone Sodium (Ceftriaxone 2,000 Mg Vial) 1,000 mg IM NOW ONE Stop: 11/13/24 08:46 Last Admin: 11/13/24 09:06 Dose: 1,000 mg Documented By: MPO Vital Signs Vital signs: Vital Signs - 8 hr 11/13/24 06:11 Temperature 99.3 F Pulse Rate 89 Respiratory Rate 18 Blood Pressure 97/58 L Pulse Oximetry 98 Oxygen Delivery Method Room Air Medical Decision Making <Sylvia Gilbert, DO - Last Filed: 11/17/24 19:00> [facility] Narrative Medical decision making narrative: 64-year-old male 5 days postoperative from sinus surgery has had 5 surgeries total, patient notes he has been IV micafungin for fungal infection in that area since February is currently on Augmentin after his most recent surgery. Based on patient's complicated history concern for possibility of abscess or other infection or changes CT of the face was obtained, because defecation CKD stage 4 we did not use contrast. Dr. Vyas is his surgeon. CT face: Patient signed out to Dr. Lilly while awaiting CT results. <Walter Lilly, DO - Last Filed: 11/13/24 08:47> Imaging Data CT scan - head: Radiologist's Impression: No acute traumatic injury is identified pansinusitis and postsurgical findings as detailed. [facility] Narrative Medical decision making narrative: 64-year-old male 5 days postoperative from sinus surgery has had 5 surgeries total, patient notes he has been IV micafungin for fungal infection in that area since February is currently on Augmentin after his most recent surgery. Based on patient's complicated history concern for possibility of abscess or other infection or changes CT of the face was obtained, because defecation CKD stage 4 we did not use contrast. Dr. Vyas is his surgeon. CT face: Patient signed out to Dr. Lilly while awaiting CT results. All lab work vital signs nurse triage note medication list previous ER visits and all imaging studies reviewed. No acute traumatic injury is identified pansinusitis and postsurgical findings as detailed per face CT. Patient given Rocephin IM 1g here and to continue daily Augmentin as previously prescribed and to follow up with ENT at your next scheduled appointment. Discharge Plan Departure Patient Disposition: Home Clinical Impression: Ear pain, left, Chronic panethmoidal sinusitis Activity Restrictions/Additional Instructions: Return with new or worsening symptoms. Take your medicines as directed. Follow up with ENT or PCP at your next scheduled appointment. Prescriptions: No Action lisinopril 20 MG tablet 20 mg PO QDAY Qty: 0 potassium citrate 5 mEq (540 mg) tablet extended release 10 meq PO BID Qty: 120 0RF Tarpeyo 4 mg Capsule,Delayed Release(Dr/Ec) 16 mg PO DAILY isosorbide mononitrate tablet 60 tab PO 1XD carvedilol 25 tab PO 1-2XD Adult Low Dose Aspirin 81 mg Tablet 81 mg PO DAILY torsemide 20 mg Tablet 20 mg PO DAILY omeprazole tablet 40 tab PO DAILY allopurinol 300 mg Tablet 300 mg PO DAILY ezetimibe 10 mg Tablet 10 mg PO DAILY valsartan 160 tab PO DAILY cetirizine capsule 10 caplet PO DAILY glipizide 2.5 mg tablet 2.5 mg PO DAILY Qty: 30 0RF amoxicillin-pot clavulanate 875-125 mg tablet 1 tab PO Q12H Qty: 14 0RF Referrals: Miscellaneous,Doctor, MD [Primary Care Provider, Medical] Stand Alone Forms: Patient Portal/API
[2024-11-13 09:08] VITALS: BP 136/78; PULSE 81; RESP 20; TEMP 37; O2SAT 100
== END 2024-11-13 09:09 | disposition home or self-care (01) ==
PROVIDERS: Emergency Provider Family Medicine
DX: H92.02 Otalgia, left ear (principal); J32.2 Chronic ethmoidal sinusitis; Z86.79 Personal history of other diseases of the circulatory system
CPT/HCPCS: 70486; 96372; 99283; 99284; J0696